=== PATIENT | female | born 1960 | race Caucasian/White ===

== ENCOUNTER → 2016-12-14 | Outpatient (CLI) | payer OTHER ==
[~2016-12-14] MED LIST: ACT15 PO; ADVIN25/60 INH; ALBU1AER9 INH; ASPCH81X PO; ASPEC81 PO; ATOR-24 PO; BISA-16 PO; BSP/10 PO; BUPR-79 PO; CANA1TAB3 PO; CHOL100010 PO; CYAN100020 PO; CZR25 PO; DEXL60CA4 PO; DTR/5 PO; EFF75 PO; ENOX1INJ13 SQ; FURO-85 PO; GABA800T PO; GLC/500 PO; HYDR1CAP85 PO; INSDGI SC; INSDGIPEN PO; INSDGIPEN SQ; LOSA1TAB PO; LPR50X PO; MCRK/10 PO; MECL1TAB42 PO; MIRT30TA2 PO; MIRT30TA3 PO; MULT-506 PO; NVLRB SC; ONDA8TAB6 PO; PIOG1TAB25 PO; POTA-327 PO; PREG100C PO; PYRI100T4 PO; RANI300C PO; ROPI1TAB29 PO; RQP/2 PO; RRNOVOLINR SQ; SOTA160T PO; SUCR1TAB29 PO; SUCR5SUS PO; SULF800T23 PO; TRAMTAB5 PO; VENL150T33 PO; VENL75CA PO; VNTHFA/IN INH; WARF5TAB90 PO
--- NOTE | 2016-12-20 08:06 | CODING QUERY NO DIAGNOSIS ---
TREATMENT RENDERED WITHOUT A DIAGNOSIS Dr. Larkin, To promote full compliance with coding requirements relating to patient care, physician participation is requested in all cases of health information coder uncertainty. Please assist us with providing a diagnosis/symptom for the test(s) below: A diagnosis/symptom was not documented on your Order. A valid diagnosis/symptom is required to bill all insurances. Please remember that we are unable to code a diagnosis of rule out, probable, possible, questionable, or suspected. Tests that require a diagnosis: * GRAM STAIN, DIRECT SMEAR DIAGNOSIS: * CULTURE, WOUND DIAGNOSIS: * ID, CULTURE ISOLATE DIAGNOSIS: DATE OF SERVICE: 12/14/16 Provider Signature: Date: Thank you Chapin [facility] Information Management Once completed, please kindly fax back to [phone] For questions please call [phone]
== END | disposition home or self-care (01) ==
LOC: C.LABSPEC 14:58
PROVIDERS: ATTEND Podiatrist
DX: L03.039 Cellulitis of unspecified toe (principal); Z98.890 Other specified postprocedural states

== ENCOUNTER 2016-12-16 11:10 | Emergency (ER) | payer OTHER ==
[~2016-12-16] VITALS: Ht 160 cm; Wt 148.6 kg
[~2016-12-16 11:10] MED LIST changes: -ACT15 PO; -ADVIN25/60 INH; -ASPCH81X PO; -BSP/10 PO; -BUPR-79 PO; -CHOL100010 PO; -INSDGI SC; -LOSA1TAB PO; -MCRK/10 PO; -MECL1TAB42 PO; -MIRT30TA2 PO; -MULT-506 PO; -NVLRB SC; -ONDA8TAB6 PO; -PIOG1TAB25 PO; -RQP/2 PO; -SUCR1TAB29 PO; -SULF800T23 PO; -TRAMTAB5 PO; -VENL150T33 PO; -VENL75CA PO; -VNTHFA/IN INH
[2016-12-16 11:13] VITALS: TEMP 37.4; Ht 160 cm; Wt 148.6 kg
[2016-12-16] MEDS ORDERED: ALBUT/IPRATROP 3MG/0.5MG NEB 3 ML VIAL INH STA (11:40)
--- NOTE | 2016-12-16 11:46 | EMERGENCY ROOM VISIT NOTE ---
History Report prepared by Grahamibmagaly: Lori Avalos Under the Supervision of: Dr. Von Vargas M.D. 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 When she takes a deep breath, she has sternal chest pain. She has burning pain that starts in her legs and radiates through her chest. She also complains of dizziness, shakiness, and abdominal pain. Her abdominal pain started about 40 minutes ago. She has never had similar symptoms in the past. Her states that she has been complaining of gas since she ate breakfast this morning. She has not had any recent falls. She does not have any close contacts with flu-like symptoms. Denies fever, cough, racing heart rate, increased leg swelling, or other complaints. She does not have a history of asthma. Past medical history includes bronchitis and COPD. She had her vitals taken at [facility] and was told she should come to the ED. 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 A total of 10 systems reviewed and were otherwise negative. Past Medical & Surgical Medical Problems: (1) Asthma, Unspecified (2) Atrial fibrillation (3) Bulging disc (4) Calculus Of Ureter (5) Diab Augustina Wo Compl, Type Ii Or Unspec Type, Not Uncntrld (6) Gastroparesis (7) Hypertension Nos (8) IBS (irritable bowel syndrome) (9) Mixed Hyperlipidemia (10) Paroxysmal atrial fibrillation (11) Reflux Esophagitis (12) TIA Surgical Problems: (1) Appendectomy (2) Carpal tunnel surgery (3) Cholecystectomy (4) H/O cardiac catheterization (5) Hysterectomy (6) S/P ablation of atrial fibrillation Old medical records were reviewed. Nurse's notes were reviewed and I agree with. Family History Diabetes mellitus FATHER FH: cancer FATHER Social History Smoking Status: Never Smoker Alcohol Use: none Drug Use: none Marital Status: Housing Status: lives with family Occupation Status: disabled Current/Historical Medications Scheduled Atorvastatin (Lipitor), 40 MG PO DAILY Dexlansoprazole (Dexilant), 60 CAP PO BID Furosemide (Lasix), 20 MG PO BID Gabapentin (Neurontin), 800 MG PO TID Insulin Human Regular (Novolin R), 40 UNITS SQ TID Metformin Hcl (Glucophage), 1,000 MG PO BID Metoprolol Tartrate (Metoprolol Tartrate), 50 MG PO BID Mirtazapine (Remeron), 30 MG PO QPM Pioglitazone Hcl (Pioglitazone Hcl), 15 MG PO DAILY Potassium Chloride (K-Tabs), 10 MEQ PO BID Ranitidine Hcl (Ranitidine Hcl), 300 MG PO HS Sotalol Hcl (Sotalol Hcl), 160 MG PO BID Venlafaxine Hcl (Effexor Xr), 1 CAP PO DAILY Warfarin Sodium (Coumadin), 10 MG PO 5XWK Warfarin Sodium (Coumadin), 7.5 MG PO 2XWK Allergies Coded Allergies: Penicillins (Verified Allergy, Mild, hives, 11/06/15) Amoxicillin (Unverified Allergy, Unknown, hives, 11/06/15) FROM DISPERMOX Dust (Verified Allergy, Unknown, HAY FEVER, 11/06/15) POLLEN (Verified Allergy, Unknown, HAY FEVER, 11/06/15) Quinolones (Unverified Adverse Reaction, Unknown, GI UPSET, 11/06/15) Sitagliptin (Verified Adverse Reaction, Unknown, abdominal pain, 11/06/15) Physical Exam Vital Signs Date Time Temp Pulse Resp B/P Pulse Ox O2 Delivery O2 Flow Rate FiO2 12/16/16 13:25 89 21 132/85 95 12/16/16 11:53 95 Room Air 12/16/16 11:13 37.4 65 22 136/83 96 Room Air Physical Exam General: Non-ill appearing, obese, middle aged female. Well developed well nourished in no acute distress, breathing comfortably on room air. Normal speech HEENT: Normal cephalic atraumatic. Pupils are equal round and reactive to light. Sclera are anicteric. Extraocular movements are intact. Oropharynx is pink with moist mucous membranes. No swelling of the mouth lips or tongue. Neck: Supple with a midline trachea. No meningeal signs or stiffness, no JVD or bruits. No Stridor. Chest: Clear to auscultation bilaterally. No wheezes or rhonchi. No increased work of breathing. Heart: regular rate and rhythm. Abdomen: Soft nontender, nondistended without rebound guarding or rigidity. Extremities: No cyanosis clubbing or edema. No calf tenderness or assymetry Spine/Back. Non tender to palpation. No CVA tenderness Skin: Good turgor without rashes. Neurologic exam: Cranial nerves two through 12 are intact. Motor and sensation are intact and symmetrical throughout. Medical Decision & Procedures ER Provider Diagnostic Interpretation: Radiology results as stated below per my review and radiologist interpretation: CHEST ONE VIEW PORTABLE CLINICAL HISTORY: CHEST PAIN dyspnea COMPARISON STUDY: 05/20/2014 FINDINGS: The bones soft tissues and hemidiaphragms are normal. The cardiomediastinal silhouette is normal. The lungs are clear. The pulmonary vasculature is normal. IMPRESSION: Negative chest. Electronically signed by: Iban Moore M.D. 12/16/2016 12:21 PM Dictated Date/Time: 12/16/2016 12:21 PM Laboratory Results 12/16/16 11:50 Red Blood Count 4.76, Mean Corpuscular Volume 86.6, Mean Corpuscular Hemoglobin 28.2, Mean Corpuscular Hemoglobin Concent 32.5, Mean Platelet Volume 9.6, Neutrophils (%) (Auto) 68.4, Lymphocytes (%) (Auto) 22.0, Monocytes (%) (Auto) 7.4, Eosinophils (%) (Auto) 1.7, Basophils (%) (Auto) 0.2, Neutrophils # (Auto) 7.22, Lymphocytes # (Auto) 2.32, Monocytes # (Auto) 0.78, Eosinophils # (Auto) 0.18, Basophils # (Auto) 0.02 12/16/16 11:50 Test 12/16/16 11:50 12/16/16 11:51 12/16/16 11:56 White Blood Count 10.55 K/uL (4.8-10.8) Red Blood Count 4.76 M/uL (4.2-5.4) Hemoglobin 13.4 g/dL (12.0-16.0) Hematocrit 41.2 % (37-47) Mean Corpuscular Volume 86.6 fL (80-100) Mean Corpuscular Hemoglobin 28.2 pg (25-34) Mean Corpuscular Hemoglobin Concent 32.5 g/dl (32-36) Platelet Count 361 K/uL (130-400) Mean Platelet Volume 9.6 fL (7.4-10.4) Neutrophils (%) (Auto) 68.4 % Lymphocytes (%) (Auto) 22.0 % Monocytes (%) (Auto) 7.4 % Eosinophils (%) (Auto) 1.7 % Basophils (%) (Auto) 0.2 % Neutrophils # (Auto) 7.22 K/uL (1.4-6.5) Lymphocytes # (Auto) 2.32 K/uL (1.2-3.4) Monocytes # (Auto) 0.78 K/uL (0.11-0.59) Eosinophils # (Auto) 0.18 K/uL (0-0.5) Basophils # (Auto) 0.02 K/uL (0-0.2) RDW Standard Deviation 43.4 fL (36.4-46.3) RDW Coefficient of Variation 13.7 % (11.5-14.5) Immature Granulocyte % (Auto) 0.3 % Immature Granulocyte # (Auto) 0.03 K/uL (0.00-0.02) Large Platelets 1+ Prothrombin Time 22.8 SECONDS (9.0-12.0) Prothromb Time International Ratio 2.1 (0.9-1.1) Activated Partial Thromboplast Time 34.2 SECONDS (21.0-31.0) Partial Thromboplastin Ratio 1.3 Anion Gap 7.0 mmol/L (3-11) Est Creatinine Clear Calc Drug Dose 101.3 ml/min Estimated GFR () 83.4 Estimated GFR (Non- 72.0 BUN/Creatinine Ratio 10.3 (10-20) Calcium Level 8.9 mg/dl (8.5-10.1) Total Bilirubin 0.3 mg/dl (0.2-1) Direct Bilirubin < 0.1 mg/dl (0-0.2) Aspartate Amino Transf (AST/SGOT) 27 U/L (15-37) Alanine Aminotransferase (ALT/SGPT) 38 U/L (12-78) Alkaline Phosphatase 122 U/L (45-117) Total Creatine Kinase 99 U/L (26-192) Creatine Kinase MB 0.7 ng/ml (0.5-3.6) Creatine Kinase MB Ratio 0.7 (0-3.0) Total Protein 7.5 gm/dl (6.4-8.2) Albumin 3.6 gm/dl (3.4-5.0) Lipase 165 U/L (73-393) Bedside Glucose 76 mg/dl (70-90) Bedside D-Dimer 53 ng/mlFEU (0-450) Bedside Troponin I 0.000 ng/ml (0-0.045) AM-Rwg-A-Type Natriuretic Peptide 138 pg/ml (0-900) Laboratory studies as stated above per my review. Medications Administered Medications (Trade) Dose Ordered Sig/Victorina Route Start Time Stop Time Status Last Admin Dose Admin Albuterol/ Ipratropium (Duoneb) 3 ml NOW STAT INH 12/16/16 11:40 12/16/16 11:42 DC 12/16/16 12:05 3 ML ECG Indication: SOB/dyspnea Rate (beats per minute): 63 Rhythm: normal sinus Findings: no acute ischemic change, no ectopy Comparison ECG Date: 05/20/14 Change: no significant change ED Course 1135: Past medical records reviewed. The patient was evaluated in room C10, and a complete history and physical examination were performed. 1140: Ordered DuoNeb 3 ml INH. 1314: Upon reevaluation, the patient is feeling much better after eating a meal. I discussed the results and treatment plan with the patient. She verbalized agreement of the treatment plan. The patient was discharged home. Medical Decision Differential includes but is not limited to CHF, COPD, arrhythmia, PE, acute coronary syndrome, anxiety, infection, electrolyte or metabolic abnormality. This patient comes in as described above. She was placed in room C 10. She felt short of breath and has some leg pain going up into her chest. She looks well on exam. she appears in no distress. She's not hypoxemic and has stable vital signs. EKG was obtained which does not show anything to suggest acute coronary syndrome or arrhythmia. Chest x-ray was clear and does not suggest congestive heart failure, pneumonia, or pneumothorax. Her cardiac enzymes are unremarkable. Her d-dimer is negative and in a low pretest probability study makes PE highly unlikely. She's had no acute electrolyte or metabolic abnormalities. She has nothing to suggest infection or sepsis. She was given a DuoNeb and observed in the ER. She also was found to have a low blood sugar in the 70s. This is actually low for her. She was given something to eat and felt better. This may be related to her blood sugar and she wants to go home. I think this is reasonable. She will return if: Worsening of symptoms, fever or chills, shortness of breath, any new problems or concerns. Impression Primary Impression: Hypoglycemia Additional Impression: Shortness of breath Scribe Attestation The scribe's documentation has been prepared under my direction and personally reviewed by me in its entirety. I confirm that the note above accurately reflects all work, treatment, procedures, and medical decision making performed by me. Departure Information Dispostion Home / Self-Care Referrals No Doctor, Assigned (PCP) Patient Instructions My [facility] Additional Instructions Rest. Drink plenty of fluids. Ensure that you do not miss any meals Checked your blood sugar frequently especially before bedtime Return if: Recurrence of symptoms, chest pain, problems with your blood sugar, shortness of breath or chills, any new problems or concerns Problem Qualifiers
[2016-12-16 12:00] LABS: HEMATOCRIT 41.2 % (37-47); MEAN CELL VOLUME 86.6 fL (80-100); MEAN CORPUSCULAR HEMOGLOBIN 28.2 pg (25-34); MEAN CORPUSCULAR HGB CONC 32.5 g/dl (32-36); MEAN PLATELET VOLUME 9.6 fL (7.4-10.4); PLATELET COUNT 361 K/uL (130-400); RED BLOOD COUNT 4.76 M/uL (4.2-5.4); WHITE BLOOD COUNT 10.55 K/uL (4.8-10.8)
[2016-12-16 12:17] LABS: ALT/SGPT 38 U/L (12-78); BLOOD UREA NITROGEN 9 mg/dl (7-18); BUN/CREATININE RATIO 10.3 (10-20); CALCIUM 8.9 mg/dl (8.5-10.1); CARBON DIOXIDE 34 mmol/L (21-32); CHLORIDE 101 mmol/L (98-107); GLUCOSE 74 mg/dl (70-99); POTASSIUM 3.7 mmol/L (3.5-5.1); SODIUM 142 mmol/L (136-145)
[2016-12-16 12:22] LABS: ALKALINE PHOSPHATASE 122 U/L (45-117); AST/SGOT 27 U/L (15-37); CKMB/CK RATIO 0.7 (0-3.0)
--- NOTE | 2016-12-16 12:22 | DIAGNOSTIC IMAGING REPORT ---
CHEST ONE VIEW PORTABLE CLINICAL HISTORY: CHEST PAIN dyspnea COMPARISON STUDY: 05/20/2014 FINDINGS: The bones soft tissues and hemidiaphragms are normal. The cardiomediastinal silhouette is normal. The lungs are clear. The pulmonary vasculature is normal. IMPRESSION: Negative chest. Electronically signed by: Iban Moore M.D. 12/16/2016 12:21 PM Dictated Date/Time: 12/16/2016 12:21 PM
[2016-12-16 12:25] LABS: INR 2.1 (0.9-1.1); PARTIAL THROMBOPLASTIN RATIO 1.3; PROTHROMBIN TIME (PATIENT) 22.8 SECONDS (9.0-12.0)
[2016-12-16 12:27] LABS: BASO % 0.2 %; BASO ABS # 0.02 K/uL (0-0.2); COMPLETE YES; EOS % 1.7 %; IG% 0.3 %; LARGE PLATELETS 1+; LYMPH ABS # 2.32 K/uL (1.2-3.4); MONO % 7.4 %; NEUT % 68.4 %
[2016-12-16 13:25] VITALS: BP 132/85; PULSE 89; O2SAT 95
[2016-12-16] MEDS ORDERED: MCRK/10 PO (13:31)
[2016-12-16] MEDS ORDERED: VENL75CA PO (13:31)
[2016-12-16] MEDS ORDERED: PIOG1TAB25 PO (13:31)
[2017-08-23] MEDS ORDERED: FURO-85 PO (09:30)
[2017-08-23] MEDS ORDERED: GLC/500 PO (09:30)
[2017-08-23] MEDS ORDERED: SOTA160T PO (09:30)
[2017-08-23] MEDS ORDERED: MIRT30TA2 PO (09:30)
[2017-08-23] MEDS ORDERED: BUPR-79 PO (09:30)
[2017-08-23] MEDS ORDERED: SUCR1TAB29 PO (09:30)
[2017-08-23] MEDS ORDERED: ASPCH81X PO (09:30)
[2017-08-23] MEDS ORDERED: TRAMTAB5 PO (09:30)
[2017-08-23] MEDS ORDERED: MULT-506 PO (09:30)
[2017-08-23] MEDS ORDERED: LOSA1TAB PO (09:30)
[2017-08-23] MEDS ORDERED: ADVIN25/60 INH (09:30)
[2017-08-23] MEDS ORDERED: NVLRB SC (09:30)
[2017-08-23] MEDS ORDERED: RQP/2 PO (09:30)
[2017-08-23] MEDS ORDERED: ACT15 PO (09:30)
[2017-08-23] MEDS ORDERED: MECL1TAB42 PO (09:30)
[2017-08-23] MEDS ORDERED: VNTHFA/IN INH (09:30)
[2017-08-23] MEDS ORDERED: ONDA8TAB6 PO (09:30)
[2017-08-23] MEDS ORDERED: CHOL100010 PO (09:30)
[2017-08-23] MEDS ORDERED: GABA800T PO (09:30)
[2017-08-23] MEDS ORDERED: INSDGI SC (09:30)
== END 2016-12-16 13:27 | disposition home or self-care (01) ==
LOC: C.EDB 11:11 → C.EDC 13:27
DX: E11.649 Type 2 diabetes mellitus with hypoglycemia without coma (principal); R06.02 Shortness of breath; I48.91 Unspecified atrial fibrillation; I10 Essential (primary) hypertension; E78.2 Mixed hyperlipidemia; K21.0 Gastro-esophageal reflux disease with esophagitis; K31.84 Gastroparesis; K58.9 Irritable bowel syndrome, unspecified; J45.909 Unspecified asthma, uncomplicated; Z86.73 Personal history of transient ischemic attack (TIA), and cerebral infarction without residual deficits; Z87.442 Personal history of urinary calculi; Z90.49 Acquired absence of other specified parts of digestive tract; Z90.710 Acquired absence of both cervix and uterus; Z98.890 Other specified postprocedural states; Z79.01 Long term (current) use of anticoagulants; Z79.4 Long term (current) use of insulin; Z79.84 Long term (current) use of oral hypoglycemic drugs; Z79.899 Other long term (current) drug therapy; Z88.0 Allergy status to penicillin; Z88.1 Allergy status to other antibiotic agents; Z88.8 Allergy status to other drugs, medicaments and biological substances; Z83.3 Family history of diabetes mellitus; Z80.9 Family history of malignant neoplasm, unspecified

== ENCOUNTER 2017-02-16 21:20 | Emergency (ER) | payer OTHER ==
[~2017-02-16] VITALS: Ht 165.1 cm; Wt 146.9 kg
[~2017-02-16 21:20] MED LIST changes: -ALBU1AER9 INH; -ASPEC81 PO; -BISA-16 PO; -CANA1TAB3 PO; -CYAN100020 PO; -CZR25 PO; -DTR/5 PO; -EFF75 PO; -ENOX1INJ13 SQ; -HYDR1CAP85 PO; -INSDGIPEN PO; -INSDGIPEN SQ; +MCRK/10 PO; +PIOG1TAB25 PO; -POTA-327 PO; -PREG100C PO; -PYRI100T4 PO; -ROPI1TAB29 PO; -SUCR5SUS PO; +VENL75CA PO
[2017-02-16 21:24] VITALS: Ht 165.1 cm; Wt 146.9 kg
[2017-02-16] MEDS ORDERED: ONDANSETRON INJ 2 MG/ML 2 ML VIAL IV STA (22:01)
[2017-02-16] MEDS ORDERED: KETOROLAC TROMETHAMINE 30 MG/ML VIAL IV STA (22:01)
[2017-02-16] MEDS ORDERED: SODIUM CHLORIDE 0.9% 1000ML 1,000 ML IV ONE (22:15)
[2017-02-16] MEDS ORDERED: BSP/10 PO (22:24)
[2017-02-16] MEDS ORDERED: VENL150T33 PO (22:24)
[2017-02-16 22:28] LABS: URINE APPEARANCE CLOUDY (CLEAR); URINE BILIRUBIN NEG (NEG); URINE EPITHELIAL CELL AUTO >30 /lpf (0-5); URINE NITRITE NEG (NEG); URINE PH 5.5 (4.5-7.5); UROBILINOGEN NEG (NEG); ZZUR CULT IF INDIC CLEAN CATCH YES
[2017-02-16 22:44] LABS: BASO % 0.3 %; BASO ABS # 0.02 K/uL (0-0.2); COMPLETE YES; EOS % 2.2 %; HEMATOCRIT 40.5 % (37-47); IG% 0.4 %; LYMPH % 31.9 %; LYMPH ABS # 2.52 K/uL (1.2-3.4); MEAN CELL VOLUME 85.4 fL (80-100); MEAN CORPUSCULAR HEMOGLOBIN 27.8 pg (25-34); MEAN CORPUSCULAR HGB CONC 32.6 g/dl (32-36); MEAN PLATELET VOLUME 9.6 fL (7.4-10.4); MONO % 6.8 %; NEUT % 58.4 %; PLATELET COUNT 267 K/uL (130-400); RED BLOOD COUNT 4.74 M/uL (4.2-5.4)
--- NOTE | 2017-02-16 22:50 | DIAGNOSTIC IMAGING REPORT ---
ABDOMEN AND PELVIS CT WITHOUT CONTRAST CT DOSE: 2109.29 mGy.cm HISTORY: Hematuria. Flank pain TECHNIQUE: Multiaxial CT images of the abdomen and pelvis were performed without the use of intravenous and oral contrast according to the standard department stone protocol. COMPARISON STUDY: Abdomen and pelvis CT 02/22/2010. FINDINGS: The lung bases are clear. No pneumoperitoneum. No pneumatosis. Cholecystectomy. Appendectomy. Hepatic steatosis. The unenhanced spleen, adrenal glands, and pancreas are unremarkable. There is a diverticulum at the second portion of the duodenum. A 5 mm stone within the right kidney. No left renal stones. A 5.6 cm hypodense lesion within the left kidney. This likely represents a cyst but is incompletely characterized on this noncontrast study. No ureteral stones. No hydronephrosis. No retroperitoneal lymphadenopathy. The bladder is not well-distended but appears unremarkable. Small fat-containing umbilical hernia. Hysterectomy. Suboptimal evaluation for bowel pathology due to the lack of intravenous and oral contrast. However, there is no definite bowel wall thickening or obstruction. IMPRESSION: 1. Right-sided nephrolithiasis. No hydronephrosis. 2. No definite bowel wall thickening or obstruction. 3. Additional findings as described above. Electronically signed by: Brandin Montejo M.D. 02/16/2017 10:48 PM Dictated Date/Time: 02/16/2017 10:42 PM
[2017-02-16 23:00] LABS: CALCIUM 8.6 mg/dl (8.5-10.1)
[2017-02-16 23:01] LABS: BUN/CREATININE RATIO 9.9 (10-20); POTASSIUM 3.7 mmol/L (3.5-5.1)
[2017-02-16 23:04] LABS: ALB/GLOB RATIO 0.9 (0.9-2)
[2017-02-16 23:06] LABS: MANUAL MICROSCOPIC REQUIRED? NO; REVIEW REQ? YES; URINE COLOR RED
--- NOTE | 2017-02-16 23:48 | EMERGENCY ROOM VISIT NOTE ---
ED Visit Note First contact with patient: 21:52 Patient seen by me with the physician food and beverage assistant. I agree with his workup. Patient will be treated for hemorrhagic cystitis. We've discussed evaluation with the patient patient's family at bedside Problem List Medical Problems: (1) Asthma, Unspecified Status: Chronic (2) Atrial fibrillation Status: Chronic (3) Bulging disc Status: Chronic (4) Calculus Of Ureter Status: Resolved (5) Diab Augustina Wo Compl, Type Ii Or Unspec Type, Not Uncntrld Status: Chronic (6) Gastroparesis Status: Chronic (7) Hypertension Nos Status: Chronic (8) IBS (irritable bowel syndrome) Status: Chronic (9) Mixed Hyperlipidemia Status: Chronic (10) Paroxysmal atrial fibrillation Status: Resolved (11) Reflux Esophagitis Status: Chronic (12) TIA Status: Chronic Surgical Problems: (1) Appendectomy Status: Resolved (2) Carpal tunnel surgery Status: Resolved (3) Cholecystectomy Status: Resolved (4) H/O cardiac catheterization Permanent Comment: Reported Oct 2011, normal coronary vasculature. Dr. Phillip Payne. Status: Resolved (5) Hysterectomy Status: Resolved (6) S/P ablation of atrial fibrillation Status: Resolved Current/Historical Medications Scheduled Atorvastatin (Lipitor), 40 MG PO DAILY Buspirone HCl (Buspirone HCl), 5 MG PO QAM Dexlansoprazole (Dexilant), 60 CAP PO BID Furosemide (Lasix), 20 MG PO BID Gabapentin (Neurontin), 800 MG PO TID Insulin Human Regular (Novolin R), 40 UNITS SQ TID Metformin Hcl (Glucophage), 1,000 MG PO BID Metoprolol Tartrate (Metoprolol Tartrate), 50 MG PO BID Mirtazapine (Remeron), 30 MG PO QPM Pioglitazone Hcl (Pioglitazone Hcl), 15 MG PO DAILY Potassium Chloride (K-Tabs), 10 MEQ PO BID Ranitidine Hcl (Ranitidine Hcl), 300 MG PO HS Sotalol Hcl (Sotalol Hcl), 160 MG PO BID Venlafaxine Hcl (Effexor Xr), 75 CAP PO QPM Venlafaxine Hcl (Venlafaxine Hcl Er), 150 MG PO QAM Warfarin Sodium (Coumadin), 15 MG PO MWF Warfarin Sodium (Coumadin), 10 MG PO DIRECTED Allergies Coded Allergies: Penicillins (Verified Allergy, Mild, hives, 02/16/17) Amoxicillin (Unverified Allergy, Unknown, hives, 02/16/17) FROM DISPERMOX Dust (Verified Allergy, Unknown, HAY FEVER, 02/16/17) POLLEN (Verified Allergy, Unknown, HAY FEVER, 02/16/17) Quinolones (Unverified Adverse Reaction, Unknown, GI UPSET, 02/16/17) Sitagliptin (Verified Adverse Reaction, Unknown, abdominal pain, 02/16/17) Vital Signs Date Time Temp Pulse Resp B/P (MAP) Pulse Ox O2 Delivery O2 Flow Rate FiO2 02/16/17 21:24 36.8 94 18 162/94 94 Room Air Laboratory Results 02/16/17 22:15 Red Blood Count 4.74, Mean Corpuscular Volume 85.4, Mean Corpuscular Hemoglobin 27.8, Mean Corpuscular Hemoglobin Concent 32.6, Mean Platelet Volume 9.6, Neutrophils (%) (Auto) 58.4, Lymphocytes (%) (Auto) 31.9, Monocytes (%) (Auto) 6.8, Eosinophils (%) (Auto) 2.2, Basophils (%) (Auto) 0.3, Neutrophils # (Auto) 4.62, Lymphocytes # (Auto) 2.52, Monocytes # (Auto) 0.54, Eosinophils # (Auto) 0.17, Basophils # (Auto) 0.02 02/16/17 22:15 Test 02/16/17 21:50 02/16/17 22:15 Urine Color RED Urine Appearance CLOUDY (CLEAR) Urine pH 5.5 (4.5-7.5) Urine Specific [place] 1.020 (1.000-1.030) Urine Protein 2+ (NEG) Urine Glucose (UA) NEG (NEG) Urine Ketones TRACE (NEG) Urine Occult Blood 3+ (NEG) Urine Nitrite NEG (NEG) Urine Bilirubin NEG (NEG) Urine Urobilinogen NEG (NEG) Urine Leukocyte Esterase TRACE (NEG) Urine WBC (Auto) 10-30 /hpf (0-5) Urine RBC (Auto) >30 /hpf (0-4) Urine Hyaline Casts (Auto) 0 /lpf (0-5) Urine Epithelial Cells (Auto) >30 /lpf (0-5) Urine Bacteria (Auto) 1+ (NEG) Urine Pathogenic Casts /lpf (0) White Blood Count 7.90 K/uL (4.8-10.8) Red Blood Count 4.74 M/uL (4.2-5.4) Hemoglobin 13.2 g/dL (12.0-16.0) Hematocrit 40.5 % (37-47) Mean Corpuscular Volume 85.4 fL (80-100) Mean Corpuscular Hemoglobin 27.8 pg (25-34) Mean Corpuscular Hemoglobin Concent 32.6 g/dl (32-36) Platelet Count 267 K/uL (130-400) Mean Platelet Volume 9.6 fL (7.4-10.4) Neutrophils (%) (Auto) 58.4 % Lymphocytes (%) (Auto) 31.9 % Monocytes (%) (Auto) 6.8 % Eosinophils (%) (Auto) 2.2 % Basophils (%) (Auto) 0.3 % Neutrophils # (Auto) 4.62 K/uL (1.4-6.5) Lymphocytes # (Auto) 2.52 K/uL (1.2-3.4) Monocytes # (Auto) 0.54 K/uL (0.11-0.59) Eosinophils # (Auto) 0.17 K/uL (0-0.5) Basophils # (Auto) 0.02 K/uL (0-0.2) RDW Standard Deviation 43.2 fL (36.4-46.3) RDW Coefficient of Variation 13.8 % (11.5-14.5) Immature Granulocyte % (Auto) 0.4 % Immature Granulocyte # (Auto) 0.03 K/uL (0.00-0.02) Anion Gap 6.0 mmol/L (3-11) Est Creatinine Clear Calc Drug Dose 92.2 ml/min Estimated GFR () 72.9 Estimated GFR (Non- 62.9 BUN/Creatinine Ratio 9.9 (10-20) Calcium Level 8.6 mg/dl (8.5-10.1) Total Bilirubin 0.3 mg/dl (0.2-1) Aspartate Amino Transf (AST/SGOT) 37 U/L (15-37) Alanine Aminotransferase (ALT/SGPT) 56 U/L (12-78) Alkaline Phosphatase 118 U/L (45-117) Total Protein 7.0 gm/dl (6.4-8.2) Albumin 3.3 gm/dl (3.4-5.0) Globulin 3.7 gm/dl (2.5-4.0) Albumin/Globulin Ratio 0.9 (0.9-2) Lipase 177 U/L (73-393) Medications Administered Medications (Trade) Dose Ordered Sig/Victorina Route Start Time Stop Time Status Last Admin Dose Admin Sodium Chloride 1,000 ml @ 999 mls/hr Q1H1M ONCE IV 02/16/17 22:15 02/16/17 23:15 DC 02/16/17 22:15 999 MLS/HR Ketorolac Tromethamine (Toradol Inj) 30 mg NOW STAT IV 02/16/17 22:01 02/16/17 22:05 DC 02/16/17 22:46 30 MG Ondansetron HCl (Zofran Inj) 4 mg NOW STAT IV 02/16/17 22:01 02/16/17 22:05 DC 02/16/17 22:45 4 MG Departure Information Referrals Chilo Goyal M.D. (PCP) Patient Instructions My [facility]
[2017-02-16] MEDS ORDERED: SULF800T23 PO (23:58)
[2017-02-17] MEDS ORDERED: SEPTRA DS HOME PACK 1 EA VIAL PO ONE
[2017-02-17 00:03] VITALS: BP 186/102; PULSE 75; TEMP 36.8; O2SAT 95
--- NOTE | 2017-02-17 01:04 | EMERGENCY ROOM VISIT NOTE ---
History First contact with patient: 21:52 Chief Complaint: URINARY SYMPTOMS Stated Complaint: BLOOD IN URINE AND BACK PRESSURE History of Present Illness The patient is a 57 year old female who presents to the Emergency Room with complaints of back pain and blood in her urine. The patient states that she noticed her symptoms earlier today. She has not had fever or chills. The patient does have some pain with urination and frequency. She is diabetic and states that her sugars have been slightly high, running around 215 today. The patient has not had nausea or vomiting. No chest pain, chest tightness, shortness of breath, or pain in the front of her abdomen. She does report a history of kidney stone in the past. She states that her pain is a dull 6/10 and radiates to her groin. She has not taken anything [id number] for her discomfort. Review of Systems More than 10 systems were reviewed and otherwise negative with the exception of history of present illness. Past Medical/Surgical History Medical Problems: (1) Asthma, Unspecified (2) Atrial fibrillation (3) Bulging disc (4) Calculus Of Ureter (5) Diab Augustina Wo Compl, Type Ii Or Unspec Type, Not Uncntrld (6) Gastroparesis (7) Hypertension Nos (8) IBS (irritable bowel syndrome) (9) Mixed Hyperlipidemia (10) Paroxysmal atrial fibrillation (11) Reflux Esophagitis (12) TIA Surgical Problems: (1) Appendectomy (2) Carpal tunnel surgery (3) Cholecystectomy (4) H/O cardiac catheterization (5) Hysterectomy (6) S/P ablation of atrial fibrillation Family History Diabetes mellitus FATHER FH: cancer FATHER Social History Smoking Status: Never Smoker Alcohol Use: none Drug Use: none Marital Status: Housing Status: lives with family Occupation Status: disabled Current/Historical Medications Scheduled Atorvastatin (Lipitor), 40 MG PO DAILY Buspirone HCl (Buspirone HCl), 5 MG PO QAM Dexlansoprazole (Dexilant), 60 CAP PO BID Furosemide (Lasix), 20 MG PO BID Gabapentin (Neurontin), 800 MG PO TID Insulin Human Regular (Novolin R), 40 UNITS SQ TID Metformin Hcl (Glucophage), 1,000 MG PO BID Metoprolol Tartrate (Metoprolol Tartrate), 50 MG PO BID Mirtazapine (Remeron), 30 MG PO QPM Pioglitazone Hcl (Pioglitazone Hcl), 15 MG PO DAILY Potassium Chloride (K-Tabs), 10 MEQ PO BID Ranitidine Hcl (Ranitidine Hcl), 300 MG PO HS Sotalol Hcl (Sotalol Hcl), 160 MG PO BID Sulfa/Trimethoprim (Bactrim Ds 800MG/160MG), 1 TAB PO BID Venlafaxine Hcl (Effexor Xr), 75 CAP PO QPM Venlafaxine Hcl (Venlafaxine Hcl Er), 150 MG PO QAM Warfarin Sodium (Coumadin), 15 MG PO MWF Warfarin Sodium (Coumadin), 10 MG PO DIRECTED Allergies Coded Allergies: Penicillins (Verified Allergy, Mild, hives, 02/16/17) Amoxicillin (Unverified Allergy, Unknown, hives, 02/16/17) FROM DISPERMOX Dust (Verified Allergy, Unknown, HAY FEVER, 02/16/17) POLLEN (Verified Allergy, Unknown, HAY FEVER, 02/16/17) Quinolones (Unverified Adverse Reaction, Unknown, GI UPSET, 02/16/17) Sitagliptin (Verified Adverse Reaction, Unknown, abdominal pain, 02/16/17) Physical Exam Vital Signs Date Time Temp Pulse Resp B/P (MAP) Pulse Ox O2 Delivery O2 Flow Rate FiO2 02/17/17 00:03 36.8 75 18 186/102 95 02/16/17 23:56 75 186/102 95 Room Air 02/16/17 21:24 36.8 94 18 162/94 94 Room Air Pain Rating (0-10): 0 Physical Exam VITALS: Vitals are noted on the nurse's note and reviewed by myself. Vital signs stable. GENERAL: Well-developed, well-nourished, white female, who is in no acute distress and resting comfortably. Patient is cooperative with the examination. HEAD: Normocephalic atraumatic. HEART: Regular rate and rhythm without murmurs gallops or rubs. LUNGS: Clear to auscultation bilaterally without wheezes, rales or rhonchi. No retractions or accessory muscle use. ABDOMEN: Positive normal bowel sounds x 4. Soft, nontender, without masses or organomegaly. No guarding or rebound tenderness. No CVA tenderness. MUSCULOSKELETAL: No muscle atrophy, erythema, or edema noted. Full range of motion without joint tenderness in all extremities. Medical Decision & Procedures ER Provider Diagnostic Interpretation: ABDOMEN AND PELVIS CT WITHOUT CONTRAST CT DOSE: 2109.29 mGy.cm HISTORY: Hematuria. Flank pain TECHNIQUE: Multiaxial CT images of the abdomen and pelvis were performed without the use of intravenous and oral contrast according to the standard department stone protocol. COMPARISON STUDY: Abdomen and pelvis CT 02/22/2010. FINDINGS: The lung bases are clear. No pneumoperitoneum. No pneumatosis. Cholecystectomy. Appendectomy. Hepatic steatosis. The unenhanced spleen, adrenal glands, and pancreas are unremarkable. There is a diverticulum at the second portion of the duodenum. A 5 mm stone within the right kidney. No left renal stones. A 5.6 cm hypodense lesion within the left kidney. This likely represents a cyst but is incompletely characterized on this noncontrast study. No ureteral stones. No hydronephrosis. No retroperitoneal lymphadenopathy. The bladder is not well-distended but appears unremarkable. Small fat-containing umbilical hernia. Hysterectomy. Suboptimal evaluation for bowel pathology due to the lack of intravenous and oral contrast. However, there is no definite bowel wall thickening or obstruction. IMPRESSION: 1. Right-sided nephrolithiasis. No hydronephrosis. 2. No definite bowel wall thickening or obstruction. 3. Additional findings as described above. Laboratory Results 02/16/17 22:15 Red Blood Count 4.74, Mean Corpuscular Volume 85.4, Mean Corpuscular Hemoglobin 27.8, Mean Corpuscular Hemoglobin Concent 32.6, Mean Platelet Volume 9.6, Neutrophils (%) (Auto) 58.4, Lymphocytes (%) (Auto) 31.9, Monocytes (%) (Auto) 6.8, Eosinophils (%) (Auto) 2.2, Basophils (%) (Auto) 0.3, Neutrophils # (Auto) 4.62, Lymphocytes # (Auto) 2.52, Monocytes # (Auto) 0.54, Eosinophils # (Auto) 0.17, Basophils # (Auto) 0.02 02/16/17 22:15 Test 02/16/17 21:50 02/16/17 22:15 Urine Color RED Urine Appearance CLOUDY (CLEAR) Urine pH 5.5 (4.5-7.5) Urine Specific [place] 1.020 (1.000-1.030) Urine Protein 2+ (NEG) Urine Glucose (UA) NEG (NEG) Urine Ketones TRACE (NEG) Urine Occult Blood 3+ (NEG) Urine Nitrite NEG (NEG) Urine Bilirubin NEG (NEG) Urine Urobilinogen NEG (NEG) Urine Leukocyte Esterase TRACE (NEG) Urine WBC (Auto) 10-30 /hpf (0-5) Urine RBC (Auto) >30 /hpf (0-4) Urine Hyaline Casts (Auto) 0 /lpf (0-5) Urine Epithelial Cells (Auto) >30 /lpf (0-5) Urine Bacteria (Auto) 1+ (NEG) Urine Pathogenic Casts /lpf (0) White Blood Count 7.90 K/uL (4.8-10.8) Red Blood Count 4.74 M/uL (4.2-5.4) Hemoglobin 13.2 g/dL (12.0-16.0) Hematocrit 40.5 % (37-47) Mean Corpuscular Volume 85.4 fL (80-100) Mean Corpuscular Hemoglobin 27.8 pg (25-34) Mean Corpuscular Hemoglobin Concent 32.6 g/dl (32-36) Platelet Count 267 K/uL (130-400) Mean Platelet Volume 9.6 fL (7.4-10.4) Neutrophils (%) (Auto) 58.4 % Lymphocytes (%) (Auto) 31.9 % Monocytes (%) (Auto) 6.8 % Eosinophils (%) (Auto) 2.2 % Basophils (%) (Auto) 0.3 % Neutrophils # (Auto) 4.62 K/uL (1.4-6.5) Lymphocytes # (Auto) 2.52 K/uL (1.2-3.4) Monocytes # (Auto) 0.54 K/uL (0.11-0.59) Eosinophils # (Auto) 0.17 K/uL (0-0.5) Basophils # (Auto) 0.02 K/uL (0-0.2) RDW Standard Deviation 43.2 fL (36.4-46.3) RDW Coefficient of Variation 13.8 % (11.5-14.5) Immature Granulocyte % (Auto) 0.4 % Immature Granulocyte # (Auto) 0.03 K/uL (0.00-0.02) Anion Gap 6.0 mmol/L (3-11) Est Creatinine Clear Calc Drug Dose 92.2 ml/min Estimated GFR () 72.9 Estimated GFR (Non- 62.9 BUN/Creatinine Ratio 9.9 (10-20) Calcium Level 8.6 mg/dl (8.5-10.1) Total Bilirubin 0.3 mg/dl (0.2-1) Aspartate Amino Transf (AST/SGOT) 37 U/L (15-37) Alanine Aminotransferase (ALT/SGPT) 56 U/L (12-78) Alkaline Phosphatase 118 U/L (45-117) Total Protein 7.0 gm/dl (6.4-8.2) Albumin 3.3 gm/dl (3.4-5.0) Globulin 3.7 gm/dl (2.5-4.0) Albumin/Globulin Ratio 0.9 (0.9-2) Lipase 177 U/L (73-393) Medications Administered Medications (Trade) Dose Ordered Sig/Victorina Route Start Time Stop Time Status Last Admin Dose Admin Sodium Chloride 1,000 ml @ 999 mls/hr Q1H1M ONCE IV 02/16/17 22:15 02/16/17 23:15 DC 02/16/17 22:15 999 MLS/HR Ketorolac Tromethamine (Toradol Inj) 30 mg NOW STAT IV 02/16/17 22:01 02/16/17 22:05 DC 02/16/17 22:46 30 MG Ondansetron HCl (Zofran Inj) 4 mg NOW STAT IV 02/16/17 22:01 02/16/17 22:05 DC 02/16/17 22:45 4 MG Trimethoprim/ Sulfamethoxazole (Sulfameth/ Trimeth Ds 800/ 160MG Home Pack) 1 homepack UD ONCE PO 02/17/17 00:00 02/17/17 00:01 DC 02/16/17 23:56 1 HOMEPACK ED Course Physical exam and history were performed. Nursing notes and EMR were reviewed. Patient appears to have hematuria with dysuria for the past one day. The patient does not appear toxic on examination. IV access was established and labs were obtained. The patient was hydrated as above. Because of her hematuria and past history of kidney stone I did elect from CT scan. The patient's blood work is as above and was reviewed. She does not have significant elevated white blood cell count, anemia, bandemia, or significant electrolyte imbalance. Lipase and transaminases are nondiagnostic. Her urine is with blood and signs of infection. CT scan does not show evidence of ureteral calculi or acute surgical abdominal process. Overall the patient appears well for discharge home. She is allergic to several antibiotics, and will be started on Bactrim. The patient will need close follow-up and she is a diabetic and is on coumadin. She was otherwise invited back to the emergency department with any new, worsening, or concerning symptoms. The chart was completed utilizing [employer] Speech Voice Recognition Software. Grammatical errors, random word insertions, pronoun errors, and incomplete sentences are an occasional consequence of this system due to software limitations, ambient noise, and hardware issues. Any formal questions or concerns about the content, text, or information contained within the body of this dictation should be directly addressed to the provider for clarification. . Medical Decision Differential diagnosis: Etiologies such as renal colic, appendicitis, diverticulitis, mesenteric ischemia, aortic pathology, infections, inflammatory bowel disease, PUD, biliary pathology, UTI, as well as others were entertained. Impression Primary Impression: Urinary tract infection Departure Information Dispostion Home / Self-Care Condition GOOD Prescriptions Sulfa/Trimethoprim (Bactrim Ds 800MG/160MG) Tab 1 TAB PO BID for 7 Days, #14 TAB Prov: Onur Prado PA-C 02/16/17 Referrals Chilo Goyal M.D. (PCP) Forms HOME CARE DOCUMENTATION FORM, IMPORTANT VISIT INFORMATION Patient Instructions My [facility] Additional Instructions You were seen and evaluated today on an emergency basis only. This is not a substitute for, or an effort to provide, complete comprehensive medical care. It is not possible to recognize and treat all injuries or illnesses in a single emergency department visit. For this reason it is recommended that you followup with your primary care physician on Monday for recheck of your condition. Trimethoprim-Sulfamethoxazole(Bactrim DS): Take one pill twice daily for 7 days for your skin infection. All antibiotics can cause diarrhea. If this occurs and you feel worse or it does not resolve in 1-2 days follow up with your doctor or return to the Emergency Department as this could be signs of serious underlying problems. Any medication can cause an allergic reaction, stop the pills immediately and return to the ER for rash, hives, breathing difficulties, or swelling. Call your Coumadin clinic in the morning to let them know you are on Bactrim You are welcome to return to the emergency department anytime with new, worsening, or concerning symptoms.
[2017-08-23] MEDS ORDERED: TRAMTAB5 PO (09:30)
[2017-08-23] MEDS ORDERED: ONDA8TAB6 PO (09:30)
[2017-08-23] MEDS ORDERED: ADVIN25/60 INH (09:30)
[2017-08-23] MEDS ORDERED: BUPR-79 PO (09:30)
[2017-08-23] MEDS ORDERED: GLC/500 PO (09:30)
[2017-08-23] MEDS ORDERED: MULT-506 PO (09:30)
[2017-08-23] MEDS ORDERED: CHOL100010 PO (09:30)
[2017-08-23] MEDS ORDERED: SOTA160T PO (09:30)
[2017-08-23] MEDS ORDERED: ACT15 PO (09:30)
[2017-08-23] MEDS ORDERED: MIRT30TA2 PO (09:30)
[2017-08-23] MEDS ORDERED: MECL1TAB42 PO (09:30)
[2017-08-23] MEDS ORDERED: LOSA1TAB PO (09:30)
[2017-08-23] MEDS ORDERED: RQP/2 PO (09:30)
[2017-08-23] MEDS ORDERED: GABA800T PO (09:30)
[2017-08-23] MEDS ORDERED: FURO-85 PO (09:30)
[2017-08-23] MEDS ORDERED: ASPCH81X PO (09:30)
[2017-08-23] MEDS ORDERED: VNTHFA/IN INH (09:30)
[2017-08-23] MEDS ORDERED: SUCR1TAB29 PO (09:30)
[2017-08-23] MEDS ORDERED: NVLRB SC (09:30)
[2017-08-23] MEDS ORDERED: INSDGI SC (09:30)
== END 2017-02-17 00:03 | disposition home or self-care (01) ==
LOC: C.EDB 21:22 → C.EDA 02-17 00:03
DX: N39.0 Urinary tract infection, site not specified (principal); E11.65 Type 2 diabetes mellitus with hyperglycemia; E11.43 Type 2 diabetes mellitus with diabetic autonomic (poly)neuropathy; Z87.442 Personal history of urinary calculi; J45.909 Unspecified asthma, uncomplicated; I10 Essential (primary) hypertension; K58.9 Irritable bowel syndrome, unspecified; E78.2 Mixed hyperlipidemia; I48.0 Paroxysmal atrial fibrillation; K21.9 Gastro-esophageal reflux disease without esophagitis; Z86.73 Personal history of transient ischemic attack (TIA), and cerebral infarction without residual deficits; Z90.49 Acquired absence of other specified parts of digestive tract; Z90.710 Acquired absence of both cervix and uterus; Z83.3 Family history of diabetes mellitus; Z80.9 Family history of malignant neoplasm, unspecified; Z79.01 Long term (current) use of anticoagulants; Z79.899 Other long term (current) drug therapy

== ENCOUNTER 2017-09-10 12:35 | Emergency (ER) | payer OTHER ==
[~2017-09-10] VITALS: Ht 165.1 cm; Wt 134.2 kg
[~2017-09-10 12:35] MED LIST changes: +ACT15 PO; +ASPCH81X PO; +BUPR-79 PO; -DEXL60CA4 PO; -FURO-85 PO; -GABA800T PO; +INSDGI SC; -LPR50X PO; -MCRK/10 PO; +MIRT30TA2 PO; -MIRT30TA3 PO; +NVLRB SC; -PIOG1TAB25 PO; -RANI300C PO; -RRNOVOLINR SQ; -SOTA160T PO; +VENL150T33 PO; -WARF5TAB90 PO
[2017-09-10 12:40] VITALS: TEMP 36.8; Ht 165.1 cm; Wt 134.2 kg
[2017-09-10 13:33] LABS: BASO % 0.3 %; BASO ABS # 0.02 K/uL (0-0.2); COMPLETE YES; EOS % 1.5 %; HEMATOCRIT 43.9 % (37-47); IG% 0.4 %; LYMPH % 24.7 %; LYMPH ABS # 1.76 K/uL (1.2-3.4); MEAN CELL VOLUME 84.7 fL (80-100); MEAN CORPUSCULAR HEMOGLOBIN 28.6 pg (25-34); MEAN CORPUSCULAR HGB CONC 33.7 g/dl (32-36); MEAN PLATELET VOLUME 10.5 fL (7.4-10.4); MONO % 7.2 %; NEUT % 65.9 %; PLATELET COUNT 231 K/uL (130-400); RED BLOOD COUNT 5.18 M/uL (4.2-5.4); WHITE BLOOD COUNT 7.13 K/uL (4.8-10.8)
--- NOTE | 2017-09-10 13:34 | EMERGENCY ROOM VISIT NOTE ---
History Report prepared by Kalpesh: Toro Mcpherson Under the Supervision of: Dr. Surjit Manzanares M.D. 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 She notes that she went to scientologist this morning when the pain suddenly began and radiated to her left arm. She describes the discomfort as "sucking in cold air that makes you want to cough." She currently rates her pain a 4/10 in severity. She notes increased tiredness. She denies any LA. She has a history of atrial fibrillation and ablation. She notes the pain felt like previous atrial fibrillation. She notes that her left arm went numb. She describes. She notes that she takes her medications regularly. She notes that she has not been sick recently, though she has had sick contacts. She notes that she has been sleeping well. She notes that she drinks three liters of regular Dr. Pepper a day. She notes that she is addicted to the soda. She denies drinking sugar free soda. She notes that some days she does not drink water at all. She has a history of diabetes. She notes that she does not regularly check her sugar. She denies any abdominal pain. 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 She notes increased tiredness. Review of Systems All systems have been listed, reviewed, and are negative other than those previously mentioned. Please see Additional Medical History Sheet. Past Medical & Surgical Medical Problems: (1) Asthma, Unspecified (2) Atrial fibrillation (3) Bulging disc (4) Calculus Of Ureter (5) Diab Augustina Wo Compl, Type Ii Or Unspec Type, Not Uncntrld (6) Gastroparesis (7) Hypertension Nos (8) IBS (irritable bowel syndrome) (9) Mixed Hyperlipidemia (10) Paroxysmal atrial fibrillation (11) Reflux Esophagitis (12) TIA Surgical Problems: (1) Appendectomy (2) Carpal tunnel surgery (3) Cholecystectomy (4) H/O cardiac catheterization (5) Hysterectomy (6) S/P ablation of atrial fibrillation Family History Diabetes mellitus FATHER FH: cancer FATHER Social History Smoking Status: Never Smoker Alcohol Use: none Drug Use: none Marital Status: Housing Status: lives with family Occupation Status: disabled Current/Historical Medications Scheduled Aspirin (Aspirin Chewable), 81 MG PO QAM Atorvastatin (Lipitor), 40 MG PO QPM Bupropion (Wellbutrin Sr), 150 MG PO QAM Buspirone HCl (Buspirone HCl), 10 MG PO QAM Cholecalciferol (Vitamin D), 1 TAB PO QAM Dexlansoprazole (Dexilant), 60 CAP PO BID Furosemide (Lasix), 20 MG PO QAM Gabapentin (Neurontin), 800 MG PO TID Insulin Glargine (Lantus), 46 UNIT SC BID Insulin Human Regular (Novolin R), 45 UNITS SC AC Losartan Potassium (Cozaar), 25 MG PO QPM Metformin Hcl (Glucophage), 2 TAB PO BID Metoprolol Tartrate (Metoprolol Tartrate), 50 MG PO BID Mirtazapine Soltab (Remeron Soltab), 30 MG PO HS Multivitamin (Multivitamin), 1 TAB PO QAM Nitrofurantoin Monohyd Macro (Macrobid), 100 MG PO BID Pioglitazone (Actos), 1 TAB PO QAM Potassium Chloride (K-Tabs), 10 MEQ PO BID Ranitidine Hcl (Ranitidine Hcl), 300 MG PO HS Ropinirole Hydrochloride (Requip), 2 MG PO TID Sotalol Hcl (Sotalol Hcl), 1 TAB PO BID Sucralfate (Carafate), 1 GM PO QID Venlafaxine Hcl (Effexor Xr), 75 CAP PO QPM Venlafaxine Hcl (Venlafaxine Hcl Er), 150 MG PO QAM Warfarin Sodium (Coumadin), 15 MG PO 2XWK Warfarin Sodium (Coumadin), 10 MG PO 5XWK Scheduled PRN Albuterol Hfa (Ventolin Hfa), 2-4 PUFFS INH Q6H PRN for Shortness of Breath Fluticasone Prop/Salmeterol (Advair Diskus 250/50 60 Dose), 1 PUFF INH BID PRN for Shortness of Breath Meclizine Hcl (Meclizine Hcl), 1 TAB PO TID PRN for VERTIGO Ondansetron Hcl (Zofran), 8 MG PO Q8H PRN for Nausea Tramadol/Acetaminophen (Ultracet), 1 TAB PO QID PRN for Pain Allergies Coded Allergies: Penicillins (Verified Allergy, Mild, hives, 08/23/17) Amoxicillin (Unverified Allergy, Unknown, hives, 08/23/17) FROM DISPERMOX Dust (Verified Allergy, Unknown, HAY FEVER, 08/23/17) POLLEN (Verified Allergy, Unknown, HAY FEVER, 08/23/17) Quinolones (Unverified Adverse Reaction, Unknown, GI UPSET, 08/23/17) Sitagliptin (Verified Adverse Reaction, Unknown, abdominal pain, 08/23/17) Physical Exam Vital Signs Date Time Temp Pulse Resp B/P (MAP) Pulse Ox O2 Delivery O2 Flow Rate FiO2 09/10/17 15:30 62 20 134/72 96 Room Air 09/10/17 14:31 78 20 155/87 93 Room Air 09/10/17 13:42 76 16 144/82 93 Room Air 09/10/17 13:09 66 09/10/17 13:07 98 Room Air 09/10/17 12:40 36.8 92 20 140/85 92 Room Air Physical Exam GENERAL: Patient awake, alert, oriented x 3. Patient follows commands. Patient does not appear toxic. Patient is adequately hydrated and well- nourished. SKIN: No erythema, pallor, cyanosis or rash HEENT: Normal head, pupils equal, reactive to light and accommodation. Ears normal. Oral cavity and posterior pharynx show dry mucus membranes. Neck: Without adenopathy, no neck vein distention. LUNGS: Clear to auscultation. No wheezes, no rales, no rhonchi. HEART: No murmurs. No gallops. No rubs ABDOMEN: No masses, no rebound, no hepatomegaly or splenomegaly. Obese EXTREMITIES: No signs of trauma. No pedal or pretibial edema. No calf or thigh tenderness. NEUROLOGIC: Cranial nerves II-XII within normal limits. No gross motor sensory function deficits. Medical Decision & Procedures ER Provider Diagnostic Interpretation: Radiology results as stated below per my review and radiologist interpretation: CHEST 2 VIEWS ROUTINE CLINICAL HISTORY: Atypical chest pain COMPARISON STUDY: 12/16/2016 FINDINGS: The cardiac and mediastinal contours are normal. There is no evidence of focal pulmonary consolidation. There is no evidence of failure. No pleural effusions are visualized.[ A vague opacity within the left midlung zone is felt to represent a summation of vascular markings and rib. IMPRESSION: No active disease in the chest. Electronically signed by: Ovi Santoyo M.D. 09/10/2017 2:32 PM Dictated Date/Time: 09/10/2017 2:32 PM Laboratory Results 09/10/17 13:02 Red Blood Count 5.18, Mean Corpuscular Volume 84.7, Mean Corpuscular Hemoglobin 28.6, Mean Corpuscular Hemoglobin Concent 33.7, Mean Platelet Volume 10.5, Neutrophils (%) (Auto) 65.9, Lymphocytes (%) (Auto) 24.7, Monocytes (%) (Auto) 7.2, Eosinophils (%) (Auto) 1.5, Basophils (%) (Auto) 0.3, Neutrophils # (Auto) 4.70, Lymphocytes # (Auto) 1.76, Monocytes # (Auto) 0.51, Eosinophils # (Auto) 0.11, Basophils # (Auto) 0.02 09/10/17 13:02 Test 09/10/17 13:02 09/10/17 14:35 White Blood Count 7.13 K/uL (4.8-10.8) Red Blood Count 5.18 M/uL (4.2-5.4) Hemoglobin 14.8 g/dL (12.0-16.0) Hematocrit 43.9 % (37-47) Mean Corpuscular Volume 84.7 fL (80-100) Mean Corpuscular Hemoglobin 28.6 pg (25-34) Mean Corpuscular Hemoglobin Concent 33.7 g/dl (32-36) Platelet Count 231 K/uL (130-400) Mean Platelet Volume 10.5 fL (7.4-10.4) Neutrophils (%) (Auto) 65.9 % Lymphocytes (%) (Auto) 24.7 % Monocytes (%) (Auto) 7.2 % Eosinophils (%) (Auto) 1.5 % Basophils (%) (Auto) 0.3 % Neutrophils # (Auto) 4.70 K/uL (1.4-6.5) Lymphocytes # (Auto) 1.76 K/uL (1.2-3.4) Monocytes # (Auto) 0.51 K/uL (0.11-0.59) Eosinophils # (Auto) 0.11 K/uL (0-0.5) Basophils # (Auto) 0.02 K/uL (0-0.2) RDW Standard Deviation 41.2 fL (36.4-46.3) RDW Coefficient of Variation 13.4 % (11.5-14.5) Immature Granulocyte % (Auto) 0.4 % Immature Granulocyte # (Auto) 0.03 K/uL (0.00-0.02) Prothrombin Time 16.0 SECONDS (9.0-12.0) Prothromb Time International Ratio 1.5 (0.9-1.1) Anion Gap 6.0 mmol/L (3-11) Est Creatinine Clear Calc Drug Dose 87.1 ml/min Estimated GFR () 72.9 Estimated GFR (Non- 62.9 BUN/Creatinine Ratio 10.7 (10-20) Calcium Level 8.9 mg/dl (8.5-10.1) Total Bilirubin 0.4 mg/dl (0.2-1) Aspartate Amino Transf (AST/SGOT) 73 U/L (15-37) Alanine Aminotransferase (ALT/SGPT) 76 U/L (12-78) Alkaline Phosphatase 167 U/L (45-117) Troponin I < 0.015 ng/ml (0-0.045) Total Protein 7.4 gm/dl (6.4-8.2) Albumin 3.5 gm/dl (3.4-5.0) Globulin 3.9 gm/dl (2.5-4.0) Albumin/Globulin Ratio 0.9 (0.9-2) Beta-Hydroxybutyric Acid 1.36 mg/dL (0.2-2.81) Urine Color YELLOW Urine Appearance CLEAR (CLEAR) Urine pH 5.0 (4.5-7.5) Urine Specific Reading 1.039 (1.000-1.030) Urine Protein NEG (NEG) Urine Glucose (UA) 3+ (NEG) Urine Ketones NEG (NEG) Urine Occult Blood 1+ (NEG) Urine Nitrite POS (NEG) Urine Bilirubin NEG (NEG) Urine Urobilinogen NEG (NEG) Urine Leukocyte Esterase NEG (NEG) Urine WBC (Auto) 10-30 /hpf (0-5) Urine RBC (Auto) 0-4 /hpf (0-4) Urine Hyaline Casts (Auto) 0 /lpf (0-5) Urine Epithelial Cells (Auto) 10-20 /lpf (0-5) Urine Bacteria (Auto) 3+ (NEG) Laboratory results as stated above per my review. ECG Indication: chest pain Rate (beats per minute): 76 Rhythm: normal sinus Findings: no acute ischemic change, no ectopy ED Course 1314: Past medical records reviewed. The patient was evaluated in room B6. A complete history and physical examination was performed. 1608: I reassessed the patient at this time. She is feeling better and resting comfortably. I discussed the results and treatment plan with the patient. I answered all pertaining questions that she had. She expressed understanding and verbalized agreement. The patient will be discharged home. Medical Decision Prior records/ancillary studies reviewed. Triage Nursing notes reviewed. The patient's history was concerning for chest pain and atrial fibrillation. Differential diagnosis: Etiologies such as cardiac ischemia, aortic dissection, pulmonary embolism, pneumonia, pneumothorax, musculoskeletal, infections, pericarditis, myocarditis , atrial fibrillation, esophageal rupture, gastrointestinal, as well as others were entertained. The patient states that the symptoms today were very similar to her past experiences with atrial fibrillation. On arrival she was asymptomatic other than being very tired which was also, and after bouts of atrial fibrillation. The patient has had a past ablation. The patient has been taking her medications as prescribed. The patient drinks approximately [address] Pepper per day. She understands the implications of the excess sugar and caffeine. Multiple labs, EKG and imaging were obtained. The patient is currently in a normal sinus rhythm. Her blood sugar is in the mid 400s. The patient would like to regulate her blood sugar at home taking insulin according to a sliding scale. A short also appears to have a urinary tract infection. She was given a prescription for Macrobid. She will continue all of her current medications as prescribed. The patient will need to follow-up with her family physician. The patient was strongly encouraged to avoid all caffeinated or sweet/sugary drinks. Medication Reconcilliation Current Medication List: was personally reviewed by me Blood Pressure Screening Patient's blood pressure: Elevated blood pressure Blood pressure disposition: Referred to PCP Impression Primary Impression: History of atrial fibrillation Additional Impressions: UTI (urinary tract infection) Diabetes mellitus out of control Scribe Attestation The scribe's documentation has been prepared under my direction and personally reviewed by me in its entirety. I confirm that the note above accurately reflects all work, treatment, procedures, and medical decision making performed by me. Departure Information Dispostion Home / Self-Care Prescriptions Nitrofurantoin Monohyd Macro (MACROBID) 100 Mg Cap 100 MG PO BID, #20 CAP Prov: Surjit Manzanares M.D. 09/10/17 Referrals Chilo Goyal M.D. (PCP) Forms Call Back Authorization, HOME CARE DOCUMENTATION FORM, IMPORTANT VISIT INFORMATION Patient Instructions My [facility] Additional Instructions 1 Macrobid twice a day for 10 days. Drink extra fluids. Stop all caffeinated and sweet drinks. Problem Qualifiers
[2017-09-10 13:42] LABS: INR 1.5 (0.9-1.1)
[2017-09-10 13:45] LABS: ALB/GLOB RATIO 0.9 (0.9-2); ALT/SGPT 76 U/L (12-78); AST/SGOT 73 U/L (15-37); BLOOD UREA NITROGEN 11 mg/dl (7-18); BUN/CREATININE RATIO 10.7 (10-20); CALCIUM 8.9 mg/dl (8.5-10.1); CARBON DIOXIDE 27 mmol/L (21-32); CHLORIDE 98 mmol/L (98-107); GLUCOSE 474 mg/dl (70-99); POTASSIUM 4.1 mmol/L (3.5-5.1); SODIUM 131 mmol/L (136-145)
[2017-09-10 13:48] LABS: ALKALINE PHOSPHATASE 167 U/L (45-117)
[2017-09-10 13:55] LABS: BETA-HYDROXYBUTYRATE 1.36 mg/dL (0.2-2.81)
--- NOTE | 2017-09-10 14:34 | DIAGNOSTIC IMAGING REPORT ---
CHEST 2 VIEWS ROUTINE CLINICAL HISTORY: Atypical chest pain COMPARISON STUDY: 12/16/2016 FINDINGS: The cardiac and mediastinal contours are normal. There is no evidence of focal pulmonary consolidation. There is no evidence of failure. No pleural effusions are visualized.[ A vague opacity within the left midlung zone is felt to represent a summation of vascular markings and rib. IMPRESSION: No active disease in the chest. Electronically signed by: Ovi Santoyo M.D. 09/10/2017 2:32 PM Dictated Date/Time: 09/10/2017 2:32 PM
[2017-09-10 14:47] LABS: URINE APPEARANCE CLEAR (CLEAR); URINE BILIRUBIN NEG (NEG); URINE COLOR YELLOW; URINE NITRITE POS (NEG); URINE SPECIFIC GRAVITY 1.039 (1.000-1.030); UROBILINOGEN NEG (NEG); ZZUR CULT IF INDIC CLEAN CATCH YES
[2017-09-10 14:48] LABS: MANUAL MICROSCOPIC REQUIRED? NO; REVIEW REQ? NO
[2017-09-10] MEDS ORDERED: NITR1CAP16 PO (16:12)
[2017-09-10 16:23] VITALS: BP 145/73; PULSE 88; O2SAT 98
--- NOTE | 2017-09-12 11:21 | Pharmacy Progress Note ---
ED Pharmacist Culture FollowUp Date of Service: Sep 12, 2017. Patient was sent home with a prescription for Macrobid 100mg PO BID x 10 days, which should cover the e coli growing from the patient's URINE culture.
[2017-09-21] MEDS ORDERED: RANI300C PO (09:02)
[2017-09-21] MEDS ORDERED: DEXL60CA4 PO (09:02)
[2017-09-21] MEDS ORDERED: RQP/2 PO (09:30)
[2017-09-21] MEDS ORDERED: SUCR1TAB29 PO (09:30)
[2017-09-21] MEDS ORDERED: SOTA160T PO (09:30)
[2017-09-21] MEDS ORDERED: VNTHFA/IN INH (09:30)
[2017-09-21] MEDS ORDERED: MULT-506 PO (09:30)
[2017-09-21] MEDS ORDERED: GABA800T PO (09:30)
[2017-09-21] MEDS ORDERED: TRAMTAB5 PO (09:30)
[2017-09-21] MEDS ORDERED: FURO-85 PO (09:30)
[2017-09-21] MEDS ORDERED: CHOL100010 PO (09:30)
[2017-09-21] MEDS ORDERED: ONDA8TAB6 PO (09:30)
[2017-09-21] MEDS ORDERED: LOSA1TAB PO (09:30)
[2017-09-21] MEDS ORDERED: ADVIN25/60 INH (09:30)
[2017-09-21] MEDS ORDERED: MECL1TAB42 PO (09:30)
[2017-09-21] MEDS ORDERED: MCRK/10 PO (13:31)
[2017-09-21] MEDS ORDERED: WARF5TAB90 PO ×2 (15:45)
== END 2017-09-10 16:33 | disposition home or self-care (01) ==
LOC: C.EDB 12:35
DX: Z86.79 Personal history of other diseases of the circulatory system (principal); N39.0 Urinary tract infection, site not specified; E11.43 Type 2 diabetes mellitus with diabetic autonomic (poly)neuropathy; J45.909 Unspecified asthma, uncomplicated; I10 Essential (primary) hypertension; E78.2 Mixed hyperlipidemia; K58.9 Irritable bowel syndrome, unspecified; K21.0 Gastro-esophageal reflux disease with esophagitis; Z90.710 Acquired absence of both cervix and uterus; Z79.01 Long term (current) use of anticoagulants; Z79.82 Long term (current) use of aspirin; Z79.4 Long term (current) use of insulin; Z79.84 Long term (current) use of oral hypoglycemic drugs; Z83.3 Family history of diabetes mellitus

== ENCOUNTER 2017-09-21 16:18 | Emergency (ER) | payer OTHER ==
[~2017-09-21] VITALS: Ht 165.1 cm; Wt 133.8 kg
[~2017-09-21 16:18] MED LIST changes: +ADVIN25/60 INH; +CHOL100010 PO; +DEXL60CA4 PO; +FURO-85 PO; +GABA800T PO; +LOSA1TAB PO; +MCRK/10 PO; +MECL1TAB42 PO; +MULT-506 PO; +NITR1CAP16 PO; +ONDA8TAB6 PO; +RANI300C PO; +RQP/2 PO; +SOTA160T PO; +SUCR1TAB29 PO; +TRAMTAB5 PO; +VNTHFA/IN INH; +WARF5TAB90 PO
[2017-09-21 16:44] VITALS: Ht 165.1 cm; Wt 133.8 kg
[2017-09-21] MEDS ORDERED: SODIUM CHLORIDE 0.9% 1000ML 1,000 ML IV ONE (17:08)
[2017-09-21] MEDS ORDERED: PROCHLORPERAZINE 5 MG/ML 2 ML VIAL IV STA (17:10)
[2017-09-21] MEDS ORDERED: MAGNESIUM SULFATE 1GM / D5W 1 GM BAG IV STA (17:10)
[2017-09-21] MEDS ORDERED: DiphenhydrAMINE HCL 50 MG/ML VIAL IV STA (17:10)
[2017-09-21] MEDS ORDERED: ACETAMINOPHEN IV 100 ML IV STA (17:10)
[2017-09-21] MEDS ORDERED: LEVALBUTEROL 1.25MG/3ML NEB INH STA (17:16)
--- NOTE | 2017-09-21 17:17 | EMERGENCY ROOM VISIT NOTE ---
History Report prepared by Kalpesh: Max Lorenzo Under the Supervision of: Dr. Onesimo Piper M.D. First contact with patient: 16:59 Chief Complaint: COUGH Stated Complaint: DEEP COUGH, CHEST PAIN, SORE THROAT Nursing Triage Summary: cough fever congestion since yesterday History of Present Illness The patient is a 57 year old female who presents to the Emergency Room with complaints of a worsening headache that began 1 day ago. Patient describes the headache as the "worst headache of her life". She states that the headache " does not go away". She adds that she has not taken any medications to relieve the symptoms. She has associated symptoms of neck pain, sore throat, and a cough. She denies a history of these symptoms. She adds that she is currently taking Coumadin for a history of atrial fibrillation. She adds that she has 2 pills left of her Macrobid. Patient states her sugar levels are not under control. She adds that she has stopped drinking Dr. Pepper. She denies getting a flu shot this year. She states that she does not use oxygen at home. Source of History: patient Onset: 1 day ago Position: head Timing: worsening Associated Symptoms: + sorethroat, + cough, + neck pain Review of Systems See HPI for pertinent positives & negatives. A total of 10 systems reviewed and were otherwise negative. Past Medical & Surgical Medical Problems: (1) Asthma, Unspecified (2) Atrial fibrillation (3) Bulging disc (4) Calculus Of Ureter (5) Diab Augustina Wo Compl, Type Ii Or Unspec Type, Not Uncntrld (6) Gastroparesis (7) Hypertension Nos (8) IBS (irritable bowel syndrome) (9) Mixed Hyperlipidemia (10) Paroxysmal atrial fibrillation (11) Reflux Esophagitis (12) TIA Surgical Problems: (1) Appendectomy (2) Carpal tunnel surgery (3) Cholecystectomy (4) H/O cardiac catheterization (5) Hysterectomy (6) S/P ablation of atrial fibrillation Family History Diabetes mellitus FATHER FH: cancer FATHER Social History Smoking Status: Never Smoker Alcohol Use: none Drug Use: none Marital Status: Housing Status: lives with family Occupation Status: disabled Current/Historical Medications Scheduled Aspirin (Aspirin Ec), 81 MG PO QAM Atorvastatin (Atorvastatin Calcium), 40 MG PO QPM Buspirone HCl (Buspirone HCl), 10 MG PO QAM Cholecalciferol (Vitamin D), 1,000 INTER.UNIT PO QAM Dexlansoprazole (Dexilant), 60 MG PO BID Furosemide (Lasix), 20 MG PO QAM Gabapentin (Neurontin), 800 MG PO TID Insulin Glargine (Lantus Solostar), 46 UNITS SC AMPM Insulin Regular (Human) (Novolin R U-100), 45 UNITS SC AC Losartan Potassium (Cozaar), 25 MG PO QPM Metformin HCl (Metformin HCl), 1,000 MG PO BID Metoprolol Tartrate (Metoprolol Tartrate), 50 MG PO BID Mirtazapine (Remeron), 30 MG PO HS Multivitamin (Multivitamin), 1 TAB PO QAM Oseltamivir Phosphate (Tamiflu), 75 MG PO BID Pioglitazone Hcl (Pioglitazone Hcl), 15 MG PO QAM Potassium Chloride (K-Tabs), 10 MEQ PO BID Ranitidine Hcl (Ranitidine Hcl), 300 MG PO HS Ropinirole Hydrochloride (Requip), 2 MG PO TID Sotalol Hcl (Sotalol Hcl), 160 MG PO BID Sucralfate (Carafate), 1 GM PO QID Venlafaxine Hcl (Effexor Extended Rel), 75 MG PO DAILY Venlafaxine Hcl (Effexor Extended Rel), 150 MG PO DAILY Warfarin Sodium (Coumadin), 15 MG PO 2XWK Warfarin Sodium (Coumadin), 10 MG PO 5XWK Scheduled PRN Albuterol Hfa (Ventolin Hfa), 2-4 PUFFS INH Q6H PRN for Shortness of Breath Fluticasone Prop/Salmeterol (Advair Diskus 250/50 60 Dose), 1 PUFF INH BID PRN for Shortness of Breath Meclizine Hcl (Meclizine Hcl), 25 MG PO TID PRN for Dizziness or Vertigo Ondansetron Hcl (Zofran), 8 MG PO Q8H PRN for Nausea Tramadol/Acetaminophen (Ultracet), 1 TAB PO QID PRN for Pain Allergies Coded Allergies: Penicillins (Verified Allergy, Mild, hives, 08/23/17) Amoxicillin (Unverified Allergy, Unknown, hives, 08/23/17) FROM DISPERMOX Dust (Verified Allergy, Unknown, HAY FEVER, 08/23/17) POLLEN (Verified Allergy, Unknown, HAY FEVER, 08/23/17) Quinolones (Unverified Adverse Reaction, Unknown, GI UPSET, 08/23/17) Sitagliptin (Verified Adverse Reaction, Unknown, abdominal pain, 08/23/17) Physical Exam Vital Signs Date Time Temp Pulse Resp B/P (MAP) Pulse Ox O2 Delivery O2 Flow Rate FiO2 09/21/17 20:49 75 20 130/77 96 09/21/17 19:35 37.2 09/21/17 19:18 73 20 123/71 96 Nasal Cannula 4.0 09/21/17 17:43 95 Nasal Cannula 4.0 09/21/17 17:30 110 09/21/17 16:44 39.4 119 20 160/84 91 Room Air Physical Exam GENERAL: Patient is a healthy-appearing well-nourished female HEAD: Normocephalic atraumatic. No evidence of encephalitis or meningitis upon examination. EYES: Ocular movements intact pupils equal and react to light OROPHARYNX mucous membranes are moist no exudates present no erythema or edema present NECK: Supple no nuchal rigidity CHEST: Good equal expansion LUNGS: Bilateral course lung sounds CARDIAC: Normal S1 and S2 ABDOMEN: Soft nontender no guarding BACK: No CVA tenderness EXTREMITIES: No pain upon palpation normal muscle strength in all groups no clubbing cyanosis or edema NEURO: Patient is following commands and answering questions appropriately. Alert and oriented x3 Cranial Nerves 2-12 grossly intact Medical Decision & Procedures ER Provider Diagnostic Interpretation: Radiology results as stated below per my review and radiologist interpretation: CT HEAD WITHOUT CONTRAST (CT) CLINICAL HISTORY: Severe headache COMPARISON STUDY: 12/09/2010 TECHNIQUE: Axial CT of the brain is performed from the vertex to the skull base. IV contrast was not administered for this examination. A dose lowering technique was utilized adhering to the principles of ALARA. CT DOSE: 537.48 mGy.cm FINDINGS: No intra or extra-axial mass lesions are visualized. There is no CT evidence of acute cortical infarction. There is no evidence of midline shift. There is no acute hemorrhage. No calvarial fractures are visualized. There are minor white matter hypodensities likely on a small vessel basis. There is no evidence of pathologic ventricular dilatation. There is no evidence of acute sinusitis. There is a partially calcified right frontal scalp nodule, possibly representing a sebaceous cyst. IMPRESSION: No acute intracranial findings Electronically signed by: Ovi Santoyo M.D. 09/21/2017 8:13 PM CHEST ONE VIEW PORTABLE CLINICAL HISTORY: 57 years-old Female presenting with Sepsis. TECHNIQUE: Portable upright AP view of the chest was obtained. COMPARISON: 09/10/2017. FINDINGS: Atherosclerosis of the aortic arch. Cardiac silhouette normal in size. Prominent pulmonary vasculature. Mildly low lung volumes with hypoventilatory changes. No focal infiltrate. No large effusion or pneumothorax. Degenerative changes of the thoracic spine. Upper abdomen normal. IMPRESSION: 1. Mildly low lung volumes with hypoventilatory changes. No focal infiltrate to suggest pneumonia. Electronically signed by: Andry Hernandez M.D. 09/21/2017 6:03 PM Laboratory Results 09/21/17 17:30 Red Blood Count 4.92, Mean Corpuscular Volume 86.0, Mean Corpuscular Hemoglobin 28.3, Mean Corpuscular Hemoglobin Concent 32.9, Mean Platelet Volume 10.1, Neutrophils (%) (Auto) 83.1, Lymphocytes (%) (Auto) 8.7, Monocytes (%) (Auto) 7.4, Eosinophils (%) (Auto) 0.4, Basophils (%) (Auto) 0.2, Neutrophils # (Auto) 3.83, Lymphocytes # (Auto) 0.40, Monocytes # (Auto) 0.34, Eosinophils # (Auto) 0.02, Basophils # (Auto) 0.01 09/21/17 17:30 Test 09/21/17 17:30 09/21/17 17:46 09/21/17 17:50 09/21/17 18:25 White Blood Count 4.61 K/uL (4.8-10.8) Red Blood Count 4.92 M/uL (4.2-5.4) Hemoglobin 13.9 g/dL (12.0-16.0) Hematocrit 42.3 % (37-47) Mean Corpuscular Volume 86.0 fL (80-100) Mean Corpuscular Hemoglobin 28.3 pg (25-34) Mean Corpuscular Hemoglobin Concent 32.9 g/dl (32-36) Platelet Count 176 K/uL (130-400) Mean Platelet Volume 10.1 fL (7.4-10.4) Neutrophils (%) (Auto) 83.1 % Lymphocytes (%) (Auto) 8.7 % Monocytes (%) (Auto) 7.4 % Eosinophils (%) (Auto) 0.4 % Basophils (%) (Auto) 0.2 % Neutrophils # (Auto) 3.83 K/uL (1.4-6.5) Lymphocytes # (Auto) 0.40 K/uL (1.2-3.4) Monocytes # (Auto) 0.34 K/uL (0.11-0.59) Eosinophils # (Auto) 0.02 K/uL (0-0.5) Basophils # (Auto) 0.01 K/uL (0-0.2) RDW Standard Deviation 42.7 fL (36.4-46.3) RDW Coefficient of Variation 13.5 % (11.5-14.5) Immature Granulocyte % (Auto) 0.2 % Immature Granulocyte # (Auto) 0.01 K/uL (0.00-0.02) Prothrombin Time 17.9 SECONDS (9.0-12.0) Prothromb Time International Ratio 1.7 (0.9-1.1) Activated Partial Thromboplast Time 35.7 SECONDS (21.0-31.0) Partial Thromboplastin Ratio 1.4 Est Creatinine Clear Calc Drug Dose 124.3 ml/min Estimated GFR () 112.3 Estimated GFR (Non- 96.9 BUN/Creatinine Ratio 8.7 (10-20) Calcium Level 8.3 mg/dl (8.5-10.1) Total Bilirubin 0.5 mg/dl (0.2-1) Aspartate Amino Transf (AST/SGOT) 171 U/L (15-37) Alanine Aminotransferase (ALT/SGPT) 95 U/L (12-78) Alkaline Phosphatase 125 U/L (45-117) Total Creatine Kinase 61 U/L (26-192) Creatine Kinase MB < 0.5 ng/ml (0.5-3.6) Creatine Kinase MB Ratio (0-3.0) Troponin I < 0.015 ng/ml (0-0.045) Total Protein 7.2 gm/dl (6.4-8.2) Albumin 3.5 gm/dl (3.4-5.0) Globulin 3.7 gm/dl (2.5-4.0) Albumin/Globulin Ratio 0.9 (0.9-2) Beta-Hydroxybutyric Acid 1.22 mg/dL (0.2-2.81) Procalcitonin 0.06 ng/ml (0-0.5) Influenza Type A Antigen POS for Influ A (NEG) Influenza Type B Antigen Neg for Influ B (NEG) Bedside D-Dimer 138 ng/mlFEU (0-450) Bedside Lactic Acid Venous 1.66 mmol/L (0.90-1.70) Bedside Hemoglobin 14.3 g/dl (12.0-16.0) Bedside Hematocrit 42 % (37-47) Bedside Sodium 137 mEq/L (135-144) Bedside Potassium 3.7 mEq/L (3.3-5.0) Bedside Chloride 95 mEq/L (101-112) Bedside Total CO2 26 mEq/l (24-31) Anion Gap 20.0 mmol/L (16-25) Bedside Blood Urea Nitrogen 5 mg/dl (7-18) Bedside Creatinine 0.6 mg/dl (0.6-1.3) Bedside Glucose (other) 172 mg/dl (70-99) Bedside Ionized Calcium (Betty) 1.10 mmol/l (1.12-1.32) Arterial Blood pH 7.42 (7.35-7.45) Arterial Blood Partial Pressure CO2 43 mmHg (35-46) Arterial Blood Partial Pressure O2 81 mm/Hg (80-95) Arterial Blood HCO3 27 mmol/L (19-24) Arterial Blood Oxygen Saturation 95.8 % (90-95) Arterial Blood Base Excess 2.5 mEq/L (-9-1.8) Arterial Blood Gas Delivery 4 LITERS O2 Mazin Test POS (POS) Test 09/21/17 19:00 Urine Color YELLOW Urine Appearance CLOUDY (CLEAR) Urine pH 8.5 (4.5-7.5) Urine Specific [place] 1.022 (1.000-1.030) Urine Protein NEG (NEG) Urine Glucose (UA) NEG (NEG) Urine Ketones NEG (NEG) Urine Occult Blood NEG (NEG) Urine Nitrite NEG (NEG) Urine Bilirubin NEG (NEG) Urine Urobilinogen NEG (NEG) Urine Leukocyte Esterase SMALL (NEG) Urine WBC (Auto) >30 /hpf (0-5) Urine RBC (Auto) 0-4 /hpf (0-4) Urine Hyaline Casts (Auto) 1-5 /lpf (0-5) Urine Epithelial Cells (Auto) 10-20 /lpf (0-5) Urine Bacteria (Auto) 4+ (NEG) Labs reviewed by ED physician. Medications Administered Medications (Trade) Dose Ordered Sig/Victorina Route Start Time Stop Time Status Last Admin Dose Admin Sodium Chloride 1,000 ml @ 999 mls/hr Q1H1M ONCE IV 09/21/17 17:08 09/21/17 18:08 DC 09/21/17 17:48 999 MLS/HR Acetaminophen 100 ml @ 400 mls/hr NOW STAT IV 09/21/17 17:10 09/21/17 17:24 DC 09/21/17 17:47 400 MLS/HR Prochlorperazine Edisylate (Compazine Inj) 10 mg NOW STAT IV 09/21/17 17:10 09/21/17 17:14 DC 09/21/17 17:48 10 MG Diphenhydramine HCl (Benadryl Inj) 50 mg NOW STAT IV 09/21/17 17:10 09/21/17 17:14 DC 09/21/17 17:48 50 MG Magnesium Sulfate (Magnesium Sulfate) 1 gm NOW STAT IV 09/21/17 17:10 09/21/17 17:14 DC 09/21/17 19:20 1 GM Levalbuterol (Xopenex 1.25MG/ 3ML Neb) 1.25 mg NOW STAT INH 09/21/17 17:16 09/21/17 17:17 DC 09/21/17 17:16 1.25 MG Methylprednisolone Sodium Succinate (Solu-Medrol IV) 60 mg NOW STAT IV 09/21/17 18:43 09/21/17 18:44 DC 09/21/17 19:21 60 MG Oseltamivir Phosphate (Tamiflu Cap) 75 mg NOW STAT PO 09/21/17 18:48 09/21/17 18:49 DC 09/21/17 19:20 75 MG ECG Indication: chest pain Rate (beats per minute): 113 Rhythm: sinus tachycardia Findings: no acute ischemic change, no ectopy ED Course 1705: Past medical records reviewed. The patient was evaluated in room C8. A complete history and physical examination was performed. 1708: Sodium Chloride 1000 ml @ 999 mls/hr IV 1710: Magnesium Sulfate 1gm IV, Benadryl Inj 50mg IV, Compazine Inj 10mg IV, Acetaminophen 100ml @ 400mls/hr IV 171: Levalbuterol 1.25mg INH 1842: Solu-Medrol IV 60mg IV 1844: I reassessed the patient who is resting comfortably. 1847: Tamiflu Cap 75mg PO 2026: Upon reexamination the patient is resting comfortably. I discussed results and treatment plan with the patient. She verbalizes agreement and understanding. The patient is ready for discharge. Medical Decision Differential diagnosis: Etiologies such as viral syndrome, otitis, pharyngitis, pneumonia, influenza, meningitis, urinary tract infection, sepsis, bacteremia, as well as others were entertained. This is a 57-year-old female who presents emergency department complaining of headache. She has no evidence of meningitis encephalitis on examination. She does not have an elevation in her white blood count cell count therefore my suspicion of meningitis exceedingly low. In addition the patient was given Toradol Compazine and Benadryl. Repeat examination revealed improvement the patient's symptoms. The patient is positive for flu and she was placed on Tamiflu. I do believe that the patient is well enough to be discharged home. She will return if any difficulty breathing or fevers or out of control. Patient is in agreement with the treatment plan. Medication Reconcilliation Current Medication List: was personally reviewed by me Blood Pressure Screening Patient's blood pressure: Normal blood pressure Blood pressure disposition: Did not require urgent referral Impression Primary Impression: Flu Scribe Attestation The scribe's documentation has been prepared under my direction and personally reviewed by me in its entirety. I confirm that the note above accurately reflects all work, treatment, procedures, and medical decision making performed by me. Departure Information Dispostion Home / Self-Care Prescriptions Oseltamivir Phosphate (Tamiflu) 75 Mg Cap 75 MG PO BID, #10 CAP Prov: Onesimo Piper MD 09/21/17 Referrals No Doctor, Assigned (PCP) Forms HOME CARE DOCUMENTATION FORM, IMPORTANT VISIT INFORMATION Patient Instructions ED Fever Control, ED Flu, My [facility] Additional Instructions Take 1000 mg Tylenol every 6 hours Increase fluids next 48 hours You were found to have an elevated blood pressure today (>120 sytolic or >90 diastolic). Per medicare guidelines, you need to follow up with this blood pressure screening with your Primary Care Physician (PCP). For a new PCP call [phone]. You have been examined and treated today on an emergency basis only. This is not a substitute for, or an effort to provide, complete comprehensive medical care. It is impossible to recognize and treat all injuries or illnesses in a single emergency department visit. It is therefore important that you follow up closely with Dr Goyal. Call as soon as possible for an appointment. Thank you for your time and consideration. I look forward to speaking with you again soon. Please don't hesitate to call us if you have any questions.
[2017-09-21] MEDS ORDERED: EFFSR150 PO (17:35)
[2017-09-21] MEDS ORDERED: EFFSR75 PO (17:35)
[2017-09-21] MEDS ORDERED: MIRT30TA3 PO (17:35)
[2017-09-21] MEDS ORDERED: INSDGIPEN SC (17:35)
[2017-09-21] MEDS ORDERED: INSUINJ7 SC (17:35)
[2017-09-21] MEDS ORDERED: PIOG1TAB25 PO (17:35)
[2017-09-21] MEDS ORDERED: LPT40 PO (17:35)
[2017-09-21] MEDS ORDERED: GLC500 PO (17:35)
[2017-09-21] MEDS ORDERED: ASPI81TA28 PO (17:39)
[2017-09-21 17:43] VITALS: O2SAT 95
[2017-09-21] MEDS ORDERED: LPR50X PO (17:51)
[2017-09-21 18:00] LABS: BASO % 0.2 %; BASO ABS # 0.01 K/uL (0-0.2); EOS % 0.4 %; EOS ABS # 0.02 K/uL (0-0.5); HEMATOCRIT 42.3 % (37-47); HEMOGLOBIN 13.9 g/dL (12.0-16.0); IG# 0.01 K/uL (0.00-0.02); LYMPH % 8.7 %; MEAN CORPUSCULAR HEMOGLOBIN 28.3 pg (25-34); MEAN CORPUSCULAR HGB CONC 32.9 g/dl (32-36); MEAN PLATELET VOLUME 10.1 fL (7.4-10.4); MONO % 7.4 %; MONO ABS # 0.34 K/uL (0.11-0.59); NEUT % 83.1 %; NEUT ABS # 3.83 K/uL (1.4-6.5); PLATELET COUNT 176 K/uL (130-400); RED CELL DISTRIBUTION WIDTH CV 13.5 % (11.5-14.5); RED CELL DISTRIBUTION WIDTH SD 42.7 fL (36.4-46.3); WHITE BLOOD COUNT 4.61 K/uL (4.8-10.8)
[2017-09-21 18:01] LABS: ISTAT CREATININE 0.6 mg/dl (0.6-1.3); ISTAT IONIZED CALCIUM 1.1 mmol/l (1.12-1.32); ISTAT POTASSIUM 3.7 mEq/L (3.3-5.0)
--- NOTE | 2017-09-21 18:04 | DIAGNOSTIC IMAGING REPORT ---
CHEST ONE VIEW PORTABLE CLINICAL HISTORY: 57 years-old Female presenting with Sepsis. TECHNIQUE: Portable upright AP view of the chest was obtained. COMPARISON: 09/10/2017. FINDINGS: Atherosclerosis of the aortic arch. Cardiac silhouette normal in size. Prominent pulmonary vasculature. Mildly low lung volumes with hypoventilatory changes. No focal infiltrate. No large effusion or pneumothorax. Degenerative changes of the thoracic spine. Upper abdomen normal. IMPRESSION: 1. Mildly low lung volumes with hypoventilatory changes. No focal infiltrate to suggest pneumonia. Electronically signed by: Andry Hernandez M.D. 09/21/2017 6:03 PM Dictated Date/Time: 09/21/2017 6:02 PM
[2017-09-21 18:19] LABS: ALBUMIN 3.5 gm/dl (3.4-5.0); ALT/SGPT 95 U/L (12-78); AST/SGOT 171 U/L (15-37); BLOOD UREA NITROGEN 6 mg/dl (7-18); CALCIUM 8.3 mg/dl (8.5-10.1); CARBON DIOXIDE 28 mmol/L (21-32); GLUCOSE 163 mg/dl (70-99); POTASSIUM 3.8 mmol/L (3.5-5.1); SODIUM 135 mmol/L (136-145)
[2017-09-21 18:21] LABS: INR 1.7 (0.9-1.1); PTT PATIENT 35.7 SECONDS (21.0-31.0)
[2017-09-21 18:24] LABS: ALKALINE PHOSPHATASE 125 U/L (45-117); CKMB < 0.5 ng/ml (0.5-3.6); TOTAL PROTEIN 7.2 gm/dl (6.4-8.2)
[2017-09-21] MEDS ORDERED: METHYLPREDNISOLONE 125 MG VIAL IV STA (18:43)
[2017-09-21 18:47] LABS: INFLUENZA B ANTIGEN Neg for Influ B (NEG)
[2017-09-21] MEDS ORDERED: OSELTAMIVIR PHOSPHATE 75 MG CAP PO STA (18:48)
[2017-09-21] MEDS ORDERED: MAGNESIUM SULFATE 1GM / D5W 1 GM BAG ONE (19:17)
[2017-09-21 19:35] VITALS: TEMP 37.2
--- NOTE | 2017-09-21 20:15 | DIAGNOSTIC IMAGING REPORT ---
CT HEAD WITHOUT CONTRAST (CT) CLINICAL HISTORY: Severe headache COMPARISON STUDY: 12/09/2010 TECHNIQUE: Axial CT of the brain is performed from the vertex to the skull base. IV contrast was not administered for this examination. A dose lowering technique was utilized adhering to the principles of ALARA. CT DOSE: 537.48 mGy.cm FINDINGS: No intra or extra-axial mass lesions are visualized. There is no CT evidence of acute cortical infarction. There is no evidence of midline shift. There is no acute hemorrhage. No calvarial fractures are visualized. There are minor white matter hypodensities likely on a small vessel basis. There is no evidence of pathologic ventricular dilatation. There is no evidence of acute sinusitis. There is a partially calcified right frontal scalp nodule, possibly representing a sebaceous cyst. IMPRESSION: No acute intracranial findings Electronically signed by: Ovi Santoyo M.D. 09/21/2017 8:13 PM Dictated Date/Time: 09/21/2017 8:12 PM
[2017-09-21] MEDS ORDERED: NF406 PO (20:30)
[2017-09-21 20:49] VITALS: BP 130/77; PULSE 75; O2SAT 96
[2017-09-21] MEDS ORDERED: BSP/10 PO (22:24)
== END 2017-09-21 21:05 | disposition home or self-care (01) ==
LOC: C.EDB 16:20 → C.EDC 21:05
DX: J11.1 Influenza due to unidentified influenza virus with other respiratory manifestations (principal); R51 Headache; R00.0 Tachycardia, unspecified; I48.91 Unspecified atrial fibrillation; I10 Essential (primary) hypertension; E11.9 Type 2 diabetes mellitus without complications; K31.84 Gastroparesis; E78.2 Mixed hyperlipidemia; K21.0 Gastro-esophageal reflux disease with esophagitis; K58.9 Irritable bowel syndrome, unspecified; J45.909 Unspecified asthma, uncomplicated; Z87.440 Personal history of urinary (tract) infections; Z86.73 Personal history of transient ischemic attack (TIA), and cerebral infarction without residual deficits; Z90.49 Acquired absence of other specified parts of digestive tract; Z90.710 Acquired absence of both cervix and uterus; Z98.890 Other specified postprocedural states; Z79.82 Long term (current) use of aspirin; Z79.01 Long term (current) use of anticoagulants; Z79.4 Long term (current) use of insulin; Z79.899 Other long term (current) drug therapy; Z88.0 Allergy status to penicillin; Z88.1 Allergy status to other antibiotic agents; Z88.8 Allergy status to other drugs, medicaments and biological substances; Z83.3 Family history of diabetes mellitus; Z80.9 Family history of malignant neoplasm, unspecified

== ENCOUNTER 2017-10-01 16:13 | Emergency (ER) | payer OTHER ==
[~2017-10-01] VITALS: Ht 165.1 cm; Wt 135.0 kg
[~2017-10-01 16:13] MED LIST changes: -ACT15 PO; -ASPCH81X PO; -ATOR-24 PO; -BUPR-79 PO; -GLC/500 PO; -INSDGI SC; -MIRT30TA2 PO; -NITR1CAP16 PO; -NVLRB SC; +OSEL75CA23 PO; -VENL150T33 PO; -VENL75CA PO
[2017-10-01 16:16] VITALS: TEMP 36.8; Ht 165.1 cm; Wt 135.0 kg
[2017-10-01] MEDS ORDERED: ALBUT/IPRATROP 3MG/0.5MG NEB 3 ML VIAL INH STA (16:27)
[2017-10-01] MEDS ORDERED: BENZONATATE 100MG CAP PO ONE ×2 (16:30→18:30)
--- NOTE | 2017-10-01 16:34 | EMERGENCY ROOM VISIT NOTE ---
History Report prepared by Kalpesh: Max Lorenzo Under the Supervision of: Dr. Gaetano Dasilva M.D. First contact with patient: 16:20 Chief Complaint: COUGH Stated Complaint: COUGHING UNTIL I PUKE, RIGHT LUNG PAIN Nursing Triage Summary: Pt c/o "coughing til I puke and I can feel in my right lung area something doesn't feel right. My is admitted for Pneumonia and +Flu," Had Influenza on 09/20, still has the cough. History of Present Illness The patient is a 57 year old female who presents to the Emergency Room with complaints of a worsening productive cough that began 10 days ago. Patient states that 10 days ago she was diagnosed with Influenza A at the ED. She was discharged with Tamiflu. She states that she feels like the flu-like symptoms have passed except for the cough. She describes the cough as "deep in her chest " and on the right side. She states she is puking up "yellow" mucous with coughing. She has associated symptoms of chest pain. She states that pressure on the chest exacerbates her chest pain. She denies fevers, stuffy nose, urinary symptoms, and diarrhea. Patient states her is currently in the hospital for pneumonia. She denies a history of smoking and asthma. Patient adds that she takes Coumadin for her history of Atrial Fibrillation. She states she has ProAir at home, but rarely uses it. She states it is a year old. Patient adds that she has used Codeine for her cough symptoms in the past, but it was not successful in suppressing her cough. She states she saw her PCP 3 days ago with similar symptoms. On the patient's ER visit 10 days ago she had a UA done that grew E. Coli. She had a Chest X-Ray performed that showed no pneumonia. Patient was also complaining of a headache during that visit and she had a CT Head done that was negative for bleeding. Source of History: patient Onset: 10 days ago Timing: worsening Modifying Factors (Relieving): other (None) Associated Symptoms: + chest pain, No fevers, No diarrhea, No urinary symptoms Review of Systems See HPI for pertinent positives & negatives. A total of 10 systems reviewed and were otherwise negative. Past Medical & Surgical Medical Problems: (1) Asthma, Unspecified (2) Atrial fibrillation (3) Bulging disc (4) Calculus Of Ureter (5) Diab Augustina Wo Compl, Type Ii Or Unspec Type, Not Uncntrld (6) Gastroparesis (7) Hypertension Nos (8) IBS (irritable bowel syndrome) (9) Mixed Hyperlipidemia (10) Paroxysmal atrial fibrillation (11) Reflux Esophagitis (12) TIA Surgical Problems: (1) Appendectomy (2) Carpal tunnel surgery (3) Cholecystectomy (4) H/O cardiac catheterization (5) Hysterectomy (6) S/P ablation of atrial fibrillation Family History Diabetes mellitus FATHER FH: cancer FATHER Social History Smoking Status: Never Smoker Alcohol Use: none Drug Use: none Marital Status: Housing Status: lives with family Occupation Status: disabled Current/Historical Medications Scheduled Albuterol Hfa (Ventolin Hfa), 3 PUFFS INH Q6H Aspirin (Aspirin Ec), 81 MG PO QAM Atorvastatin (Lipitor), 40 MG PO QPM Azithromycin (Zithromax Z-Lex), 0 PO UD Benzonatate (Tessalon Perles), 1-2 CAP PO TID Buspirone HCl (Buspirone HCl), 10 MG PO QAM Cholecalciferol (Vitamin D), 1,000 INTER.UNIT PO QAM Dexlansoprazole (Dexilant), 60 MG PO BID Furosemide (Lasix), 20 MG PO QAM Gabapentin (Neurontin), 800 MG PO TID Insulin Glargine (Lantus Solostar), 46 UNITS SC AMPM Insulin Regular (Human) (Novolin R U-100), 45 UNITS SC AC Losartan Potassium (Cozaar), 25 MG PO QPM Metformin HCl (Metformin HCl), 1,000 MG PO BID Metoprolol Tartrate (Metoprolol Tartrate), 50 MG PO BID Mirtazapine (Remeron), 30 MG PO HS Multivitamin (Multivitamin), 1 TAB PO QAM Pioglitazone Hcl (Pioglitazone Hcl), 15 MG PO QAM Potassium Chloride (K-Tabs), 10 MEQ PO BID Ranitidine Hcl (Ranitidine Hcl), 300 MG PO HS Ropinirole Hydrochloride (Requip), 2 MG PO TID Sotalol Hcl (Sotalol Hcl), 160 MG PO BID Sucralfate (Carafate), 1 GM PO QID Venlafaxine Hcl (Effexor Extended Rel), 75 MG PO DAILY Venlafaxine Hcl (Effexor Extended Rel), 150 MG PO DAILY Warfarin Sodium (Coumadin), 15 MG PO 2XWK Warfarin Sodium (Coumadin), 10 MG PO 5XWK Scheduled PRN Albuterol Hfa (Ventolin Hfa), 2-4 PUFFS INH Q6H PRN for Shortness of Breath Fluticasone Prop/Salmeterol (Advair Diskus 250/50 60 Dose), 1 PUFF INH BID PRN for Shortness of Breath Meclizine Hcl (Meclizine Hcl), 25 MG PO TID PRN for Dizziness or Vertigo Ondansetron Hcl (Zofran), 8 MG PO Q8H PRN for Nausea Tramadol/Acetaminophen (Ultracet), 1 TAB PO QID PRN for Pain Allergies Coded Allergies: Penicillins (Verified Allergy, Mild, hives, 08/23/17) Amoxicillin (Unverified Allergy, Unknown, hives, 08/23/17) FROM DISPERMOX Dust (Verified Allergy, Unknown, HAY FEVER, 08/23/17) POLLEN (Verified Allergy, Unknown, HAY FEVER, 08/23/17) Quinolones (Unverified Adverse Reaction, Unknown, GI UPSET, 08/23/17) Sitagliptin (Verified Adverse Reaction, Unknown, abdominal pain, 08/23/17) Physical Exam Vital Signs Date Time Temp Pulse Resp B/P (MAP) Pulse Ox O2 Delivery O2 Flow Rate FiO2 10/01/17 18:15 76 20 155/94 91 Room Air 10/01/17 16:19 95 Room Air 10/01/17 16:16 36.8 79 20 143/79 95 Room Air Physical Exam GENERAL: Patient is in no acute distress. HEENT: No acute trauma, normocephalic atraumatic, mucous membranes moist, no nasal congestion, no scleral icterus. NECK: No stridor, no adenopathy, no meningismus, trachea is midline. LUNGS: Fairly full breath sounds that are equal, wheezing more so on the right, no crackles heard. Moist cough noted. CHEST: Tenderness over the mid sternum and over the right chest wall HEART: Without murmurs gallops or rubs, regular rate and rhythm. ABDOMEN: Soft, nontender, bowel sounds positive, no hernias, no peritonitis. EXTREMITIES: No cyanosis or edema, full range of motion of all the joints without pain or difficulty, no signs for acute trauma. NEUROLOGIC: Oriented x 3, no acute motor or sensory deficits, no focal weakness. SKIN: No rash, no jaundice, no diaphoresis. Medical Decision & Procedures ER Provider Diagnostic Interpretation: Radiology results as stated below per my review and radiologist interpretation: CHEST 2 VIEWS ROUTINE HISTORY: EVALUATE RESPIRATORY DISTRESS.DYSPNEA COMPARISON: Chest 09/21/2017. FINDINGS: There are low lung volumes. The heart remains borderline enlarged. The lungs are clear. No pleural effusions. No pneumothorax. IMPRESSION: No significant change compared to the prior study. No acute process. Electronically signed by: Brandin Montejo M.D. 10/01/2017 5:58 PM Laboratory Results 10/01/17 16:35 Red Blood Count 4.78, Mean Corpuscular Volume 85.4, Mean Corpuscular Hemoglobin 28.2, Mean Corpuscular Hemoglobin Concent 33.1, Mean Platelet Volume 9.7, Neutrophils (%) (Auto) 70.8, Lymphocytes (%) (Auto) 20.5, Monocytes (%) (Auto) 7.1, Eosinophils (%) (Auto) 1.0, Basophils (%) (Auto) 0.2, Neutrophils # (Auto) 7.23, Lymphocytes # (Auto) 2.09, Monocytes # (Auto) 0.72, Eosinophils # (Auto) 0.10, Basophils # (Auto) 0.02 10/01/17 16:35 Test 10/01/17 16:35 White Blood Count 10.20 K/uL (4.8-10.8) Red Blood Count 4.78 M/uL (4.2-5.4) Hemoglobin 13.5 g/dL (12.0-16.0) Hematocrit 40.8 % (37-47) Mean Corpuscular Volume 85.4 fL (80-100) Mean Corpuscular Hemoglobin 28.2 pg (25-34) Mean Corpuscular Hemoglobin Concent 33.1 g/dl (32-36) Platelet Count 225 K/uL (130-400) Mean Platelet Volume 9.7 fL (7.4-10.4) Neutrophils (%) (Auto) 70.8 % Lymphocytes (%) (Auto) 20.5 % Monocytes (%) (Auto) 7.1 % Eosinophils (%) (Auto) 1.0 % Basophils (%) (Auto) 0.2 % Neutrophils # (Auto) 7.23 K/uL (1.4-6.5) Lymphocytes # (Auto) 2.09 K/uL (1.2-3.4) Monocytes # (Auto) 0.72 K/uL (0.11-0.59) Eosinophils # (Auto) 0.10 K/uL (0-0.5) Basophils # (Auto) 0.02 K/uL (0-0.2) RDW Standard Deviation 42.0 fL (36.4-46.3) RDW Coefficient of Variation 13.5 % (11.5-14.5) Immature Granulocyte % (Auto) 0.4 % Immature Granulocyte # (Auto) 0.04 K/uL (0.00-0.02) Prothrombin Time 32.9 SECONDS (9.0-12.0) Prothromb Time International Ratio 3.2 (0.9-1.1) Activated Partial Thromboplast Time 44.0 SECONDS (21.0-31.0) Partial Thromboplastin Ratio 1.7 Anion Gap 5.0 mmol/L (3-11) Est Creatinine Clear Calc Drug Dose 116.6 ml/min Estimated GFR () 103.3 Estimated GFR (Non- 89.1 BUN/Creatinine Ratio 8.3 (10-20) Calcium Level 8.9 mg/dl (8.5-10.1) Troponin I < 0.015 ng/ml (0-0.045) Laboratory results reviewed by me. Medications Administered Medications (Trade) Dose Ordered Sig/Victorina Route Start Time Stop Time Status Last Admin Dose Admin Albuterol/ Ipratropium (Duoneb) 3 ml NOW STAT INH 10/01/17 16:27 10/01/17 16:30 DC 10/01/17 16:50 3 ML Benzonatate (Tessalon Perles Cap) 200 mg NOW ONCE PO 10/01/17 16:30 10/01/17 16:31 DC 10/01/17 16:50 200 MG Azithromycin (Zithromax Tab) 500 mg NOW STAT PO 10/01/17 18:20 10/01/17 18:22 DC 10/01/17 18:47 500 MG Albuterol (Ventolin Hfa Inhaler) 2 puffs NOW ONCE INH 10/01/17 18:30 10/01/17 18:31 DC 10/01/17 18:47 2 PUFFS Benzonatate (Tessalon Perles Cap) 200 mg NOW ONCE PO 10/01/17 18:30 10/01/17 18:31 DC 10/01/17 18:47 200 MG ECG Indication: other (Cough) Rate (beats per minute): 74 Rhythm: normal sinus (with LVH) Findings: no acute ischemic change, no ectopy ED Course 1622: The patient was evaluated in room B6. A complete history and physical exam was performed. 1627: Duoneb 3ml Inh 1630: Benzonatate 200mg PO 1820: Azithromycin 500mg PO 1830: Benzonatate 200mg, Albuterol 2 puffs INH 1840: Reevaluated the patient. Discussed results and discharge instructions. He verbalized understanding and agreement. The patient is ready for discharge. Medical Decision Differential Diagnosis: Pneumonia, bronchitis, musculoskeletal pain, pneumothorax, heart failure, cardiac ischemia, anemia, electrolyte imbalance Patient presents with a persistent cough since being diagnosed with influenza. She was concerned for the possibility of pneumonia. On exam, her lungs were clear. She was not febrile or hypoxic. She did not appear toxic. There is no leukocytosis or concerning anemia. No significant electrolyte abnormality or kidney failure. INR is just over the therapeutic window for someone using Coumadin. EKG shows a sinus rhythm, no acute ischemia. Cardiac enzyme testing times one is not consistent with acute cardiac injury. Chest film does not show pneumonia, CHF or mediastinal widening. The patient received a DuoNeb, Tessalon Perles orally. She was given oral Zithromax and albuterol via MDI. The patient has acute bronchitis, likely left over from her influenza. She also has reproducible anterior chest pain. As the patient has been ill for weeks, as she does have some lung disease, I think antibiotics are indicated. With her allergies, I have chosen a Z-Lex. Patient will also be using albuterol frequently. Tessalon for cough. If worsening, she can return. She will see her doctor this week for a recheck. Medication Reconcilliation Current Medication List: was personally reviewed by me Blood Pressure Screening Patient's blood pressure: Elevated blood pressure Blood pressure disposition: Elevated BP felt to be situational Impression Primary Impression: Acute bronchitis Additional Impressions: Anterior chest wall pain Cough Scribe Attestation The scribe's documentation has been prepared under my direction and personally reviewed by me in its entirety. I confirm that the note above accurately reflects all work, treatment, procedures, and medical decision making performed by me. Departure Information Dispostion Home / Self-Care Prescriptions Benzonatate (TESSALON PERLES) 100 Mg Cap 1-2 CAP PO TID, #20 CAP Prov: Gaetano Dasilva M.D. 10/01/17 Albuterol Hfa (VENTOLIN HFA) 200 Puffs/25929 Mcg Aers 3 PUFFS INH Q6H, #1 INHALER Prov: Gaetano Dasilva M.D. 10/01/17 Azithromycin (ZITHROMAX Z-LEX) 250 Mg Tab 0 PO UD, #1 PKT Prov: Gaetano Dasilva M.D. 10/01/17 Referrals No Doctor, Assigned (PCP) Forms HOME CARE DOCUMENTATION FORM, IMPORTANT VISIT INFORMATION Patient Instructions My [facility] Additional Instructions rest fluids zpac as directed tessalon perles 1-2 tab every 6 hours for cough albuterol 3 puffs every 4 hours return if worsening see della alves this week heat to the chest wall will help otc pain meds as needed keep a close watch on the INR when on the antibiotics Problem Qualifiers
[2017-10-01 16:49] LABS: BASO % 0.2 %; BASO ABS # 0.02 K/uL (0-0.2); HEMATOCRIT 40.8 % (37-47); HEMOGLOBIN 13.5 g/dL (12.0-16.0); IG# 0.04 K/uL (0.00-0.02); LYMPH % 20.5 %; LYMPH ABS # 2.09 K/uL (1.2-3.4); MEAN CELL VOLUME 85.4 fL (80-100); MEAN CORPUSCULAR HEMOGLOBIN 28.2 pg (25-34); MEAN CORPUSCULAR HGB CONC 33.1 g/dl (32-36); MEAN PLATELET VOLUME 9.7 fL (7.4-10.4); MONO % 7.1 %; MONO ABS # 0.72 K/uL (0.11-0.59); NEUT % 70.8 %; NEUT ABS # 7.23 K/uL (1.4-6.5); PLATELET COUNT 225 K/uL (130-400); RED CELL DISTRIBUTION WIDTH CV 13.5 % (11.5-14.5)
[2017-10-01 16:53] LABS: INR 3.2 (0.9-1.1)
[2017-10-01 17:06] LABS: BLOOD UREA NITROGEN 6 mg/dl (7-18); CALCIUM 8.9 mg/dl (8.5-10.1); CARBON DIOXIDE 30 mmol/L (21-32); CREATININE 0.75 mg/dl (0.60-1.20); GLUCOSE 208 mg/dl (70-99); POTASSIUM 3.8 mmol/L (3.5-5.1); SODIUM 135 mmol/L (136-145)
[2017-10-01] MEDS ORDERED: LPT40 PO (17:35)
[2017-10-01] MEDS ORDERED: INSDGIPEN SC (17:35)
[2017-10-01] MEDS ORDERED: PIOG1TAB25 PO (17:35)
[2017-10-01] MEDS ORDERED: INSUINJ7 SC (17:35)
[2017-10-01] MEDS ORDERED: MIRT30TA3 PO (17:35)
[2017-10-01] MEDS ORDERED: GLC500 PO (17:35)
[2017-10-01] MEDS ORDERED: EFFSR75 PO (17:35)
[2017-10-01] MEDS ORDERED: EFFSR150 PO (17:35)
[2017-10-01] MEDS ORDERED: ASPI81TA28 PO (17:39)
[2017-10-01] MEDS ORDERED: LPR50X PO (17:51)
--- NOTE | 2017-10-01 17:59 | DIAGNOSTIC IMAGING REPORT ---
CHEST 2 VIEWS ROUTINE HISTORY: EVALUATE RESPIRATORY DISTRESS.DYSPNEA COMPARISON: Chest 09/21/2017. FINDINGS: There are low lung volumes. The heart remains borderline enlarged. The lungs are clear. No pleural effusions. No pneumothorax. IMPRESSION: No significant change compared to the prior study. No acute process. Electronically signed by: Brandin Montejo M.D. 10/01/2017 5:58 PM Dictated Date/Time: 10/01/2017 5:57 PM
[2017-10-01 18:15] VITALS: BP 155/94; PULSE 76; O2SAT 91
[2017-10-01] MEDS ORDERED: AZITHROMYCIN 250 MG TAB PO STA (18:20)
[2017-10-01] MEDS ORDERED: VNTHFA/IN INH (18:27)
[2017-10-01] MEDS ORDERED: AZITTAB PO (18:27)
[2017-10-01] MEDS ORDERED: BENZ100C18 PO (18:27)
[2017-10-01] MEDS ORDERED: ALBUTEROL HFA 8 GM INHALER INH ONE (18:30)
[2017-10-01] MEDS ORDERED: BSP/10 PO (22:24)
== END 2017-10-01 18:50 | disposition home or self-care (01) ==
LOC: C.EDB 16:14
DX: J20.9 Acute bronchitis, unspecified (principal); R07.89 Other chest pain; R05 Cough; J45.909 Unspecified asthma, uncomplicated; I48.91 Unspecified atrial fibrillation; E11.9 Type 2 diabetes mellitus without complications; I10 Essential (primary) hypertension; K58.9 Irritable bowel syndrome, unspecified; E78.2 Mixed hyperlipidemia; K21.0 Gastro-esophageal reflux disease with esophagitis; Z86.73 Personal history of transient ischemic attack (TIA), and cerebral infarction without residual deficits; Z83.3 Family history of diabetes mellitus; Z80.9 Family history of malignant neoplasm, unspecified; Z79.82 Long term (current) use of aspirin; Z79.4 Long term (current) use of insulin; Z79.01 Long term (current) use of anticoagulants; Z79.899 Other long term (current) drug therapy

== ENCOUNTER 2017-12-30 08:46 | Emergency (ER) | payer OTHER ==
[~2017-12-30] VITALS: Ht 165.1 cm; Wt 137.4 kg
[~2017-12-30 08:46] MED LIST changes: +ASPI81TA28 PO; +BSP/10 PO; +EFF75 PO; +INSDGIPEN SC; +INSP SC; +LPR50X PO; +LPT40 PO; +METF-384 PO; +MIRT30TA3 PO; +ONDA-170 PO; -ONDA8TAB6 PO; -OSEL75CA23 PO; +PIOG1TAB25 PO; +VENL150C56 PO
[2017-12-30 08:57] VITALS: Ht 165.1 cm; Wt 137.4 kg
[2017-12-30] MEDS ORDERED: CEFD300C3 PO (09:23)
--- NOTE | 2017-12-30 09:37 | EMERGENCY ROOM VISIT NOTE ---
History Report prepared by Kalpesh: Agustin León Under the Supervision of: Dr. Max Lieberman M.D. First contact with patient: 09:36 Chief Complaint: FLU LIKE SX Stated Complaint: COUGH, WHEEZING, CONGESTION,SPEARS DBI EAR INFECTION History of Present Illness The patient is a 57 year old female who presents to the Emergency Room with complaints of constant, flu-like illness beginning 5 days ago. The patient notes having ear pain prior to the onset of her current symptoms. She states that she saw her PCP was diagnosed with a double ear infection and prescribed a course of antibiotics and ear drops which she is still currently taking. The patient reports that her ear pain improved, however, she states that she developed other symptoms 5 days ago including a dry cough, wheezing, runny nose , sneezing, and a subjective fever. She notes that she is on currently taking Coumadin due to her history of A-Fib and reports having an ablation performed. The patient denies any history of asthma, history of clotting disorders, history of smoking, vomiting, diarrhea, abdominal pain, headache, body aches, or taking any antipyretic medications today. She denies any chest pain. Source of History: patient Onset: 5 days ago Position: other (global ) Quality: other (flu-like ) Timing: constant Associated Symptoms: + fevers, + cough, No headache, No vomiting, No abdominal pain Note: Associated Symptoms: Ear pain, wheezing, runny nose, sneezing. Denies: History of asthma, history of clotting disorders, or body aches. Review of Systems See HPI for pertinent positives & negatives. A total of 10 systems reviewed and were otherwise negative. Past Medical & Surgical Medical Problems: (1) Asthma, Unspecified (2) Atrial fibrillation (3) Bulging disc (4) Calculus Of Ureter (5) Diab Augustina Wo Compl, Type Ii Or Unspec Type, Not Uncntrld (6) Gastroparesis (7) Hypertension Nos (8) IBS (irritable bowel syndrome) (9) Mixed Hyperlipidemia (10) Paroxysmal atrial fibrillation (11) Reflux Esophagitis (12) TIA Surgical Problems: (1) Appendectomy (2) Carpal tunnel surgery (3) Cholecystectomy (4) H/O cardiac catheterization (5) Hysterectomy (6) S/P ablation of atrial fibrillation Family History Diabetes mellitus FATHER FH: cancer FATHER Social History Smoking Status: Never Smoker Alcohol Use: none Drug Use: none Marital Status: Housing Status: lives with family Occupation Status: disabled Current/Historical Medications Scheduled Aspirin (Aspirin Ec), 81 MG PO QAM Atorvastatin (Lipitor), 40 MG PO QPM Buspirone HCl (Buspirone HCl), 10 MG PO QAM Cefdinir (Cefdinir), 300 MG PO BID Cholecalciferol (Vitamin D), 1,000 INTER.UNIT PO QAM Dexlansoprazole (Dexilant), 60 MG PO BID Doxycycline Hyclate (Vibramycin), 100 MG PO BID Furosemide (Lasix), 20 MG PO QAM Gabapentin (Neurontin), 800 MG PO TID Insulin Glargine (Lantus Solostar), 46 UNITS SC AMPM Insulin Human Regular (Novolin R), 1 DOSE SC QID Losartan Potassium (Cozaar), 25 MG PO QPM Metformin Hcl (Glucophage), 1,000 MG PO BID Metoprolol Tartrate (Metoprolol Tartrate), 50 MG PO BID Mirtazapine (Remeron), 30 MG PO HS Multivitamin (Multivitamin), 1 TAB PO QAM Pioglitazone Hcl (Pioglitazone Hcl), 15 MG PO QAM Potassium Chloride (K-Tabs), 10 MEQ PO BID Ranitidine Hcl (Ranitidine Hcl), 300 MG PO HS Ropinirole Hydrochloride (Requip), 2 MG PO TID Sotalol Hcl (Sotalol Hcl), 160 MG PO BID Sucralfate (Carafate), 1 GM PO QID Venlafaxine Hcl (Effexor), 75 MG PO HS Venlafaxine Hcl (Effexor Extended Rel), 150 MG PO QAM Warfarin Sodium (Coumadin), 15 MG PO 2XWK Warfarin Sodium (Coumadin), 10 MG PO 5XWK Scheduled PRN Albuterol Hfa (Ventolin Hfa), 2-4 PUFFS INH Q6H PRN for Shortness of Breath Fluticasone Prop/Salmeterol (Advair Diskus 250/50 60 Dose), 1 PUFF INH BID PRN for Shortness of Breath Meclizine Hcl (Meclizine Hcl), 25 MG PO TID PRN for Dizziness or Vertigo Ondansetron Hcl (Zofran), 8 MG PO Q8H PRN for Nausea Tramadol/Acetaminophen (Ultracet), 1 TAB PO QID PRN for Pain Allergies Coded Allergies: Penicillins (Verified Allergy, Mild, hives, 12/30/17) Amoxicillin (Unverified Allergy, Unknown, hives, 12/30/17) FROM DISPERMOX Dust (Verified Allergy, Unknown, HAY FEVER, 12/30/17) POLLEN (Verified Allergy, Unknown, HAY FEVER, 12/30/17) Quinolones (Unverified Adverse Reaction, Unknown, GI UPSET, 12/30/17) Sitagliptin (Verified Adverse Reaction, Unknown, abdominal pain, 12/30/17) Physical Exam Vital Signs Date Time Temp Pulse Resp B/P (MAP) Pulse Ox O2 Delivery O2 Flow Rate FiO2 12/30/17 10:46 37.0 86 16 146/90 94 12/30/17 08:57 38.2 92 20 141/90 93 Room Air Physical Exam Constitutional: Vital signs reviewed. Eyes: Pupils are equal round reactive to light. Conjunctiva are noninjected. ENT: Pharynx is clear without erythema or exudate. Mucous membranes are moist. Neck supple without meningeal signs.TMs are clear bilaterally. No signs of otitis externa bilaterally. Respiratory: Breath sounds are equal bilaterally. Bilateral wheezing. Cardiovascular: Regular rate and rhythm. No rubs or gallops. GI: Soft, nondistended and nontender. Bowel sounds are present. Musculoskeletal: No peripheral edema. No lower extremity tenderness. Integumentary: No cyanosis. Neurological: The patient is awake and alert. No focal deficits. Psychiatric: Normal affect. Medical Decision & Procedures ER Provider Diagnostic Interpretation: Radiology results as stated below per my review and the radiologist's interpretation: CHEST 2 VIEWS ROUTINE CLINICAL HISTORY: Cough and wheezing COMPARISON STUDY: 10/01/2017 FINDINGS: The heart is normal in size. There are subtle left lower lobe airspace opacity suspicious for a pneumonia. Films subsequent to treatment are recommended in follow-up. There is no failure. There are no pleural effusions. IMPRESSION: Subtle left lobe airspace opacities suspicious for pneumonia Electronically signed by: Ovi Santoyo M.D. 12/30/2017 10:18 AM Dictated Date/Time: 12/30/2017 10:18 AM Laboratory Results . Medications Administered Medications (Trade) Dose Ordered Sig/Victorina Route Start Time Stop Time Status Last Admin Dose Admin Prednisone (PredniSONE TAB) 60 mg NOW STAT PO 12/30/17 09:49 12/30/17 09:52 DC 12/30/17 09:57 60 MG Albuterol/ Ipratropium (Duoneb) 3 ml NOW STAT INH 12/30/17 09:49 12/30/17 09:52 DC 12/30/17 09:57 3 ML Acetaminophen (Tylenol Tab) 650 mg NOW STAT PO 12/30/17 09:49 12/30/17 09:52 DC 12/30/17 09:57 650 MG Doxycycline Hyclate (Vibramycin Cap) 100 mg ONE ONCE PO 12/30/17 10:45 12/30/17 10:46 DC 12/30/17 10:44 100 MG ED Course 0937: The patient was evaluated in room B03B. A complete history and physical exam was performed. 0949: Ordered Acetaminophen 650mg PO, DuoNeb 3ml INH, and Prednisone 60mg PO. 1023: I reassessed the patient. She states that she is feeling much better. She denies any wheezing on re-exam. I discussed chest x-ray and hospitalization with the patient. She does not wish to stay in the hospital and states she feels well at this time. She states that she has an inhaler and nebulizer at home. I will add doxycycline for better strep-pneumonia coverage. 1045: Ordered Vibramycin Cap 100mg PO 1046: Upon reevaluation, the patient appeared to have improvement of he symptoms. I discussed tonight's findings with her. She verbalized agreement of the treatment plan. She was discharged home. Medical Decision This is a 57-year-old female presents with cough and cold symptoms with shortness of breath. Differential diagnosis includes acute asthma exacerbation , COPD, pneumonia, bronchitis, viral syndrome. I did perform a limited focused review of portions of the patient's old chart on the electronic medical record. She was seen in September an diagnose with Bronchitis for which she was placed on Zithromax. She was also diagnosed with Influenza A in September. I did evaluate the patient as noted above. The patient is presenting with cold symptoms for about 5 days. She does have wheezing diffusely. She states she does not have asthma but she is reported to have a history of asthma throughout her chart. She also states that she has an albuterol inhaler and nebulizer at home. I did treat her with prednisone 60 mg and a DuoNeb. She was also given Tylenol. I did order and personally review the patient's chest x-ray as described above. She does have a left lower lobe infiltrate. I did reassess patient. She is feeling much better. She has no wheezing to auscultation of her lungs. I did discuss her x-ray results with her. She stated she felt fine and did not wish to be admitted to the hospital. She was given a prescription for doxycycline to increased strep pneumoniae coverage. She was discharged in good condition and advised to follow-up with her doctor on Monday. Medication Reconcilliation Current Medication List: was personally reviewed by me Blood Pressure Screening Patient's blood pressure: Elevated blood pressure Blood pressure disposition: Referred to PCP Impression Primary Impression: Left lower lobe pneumonia Additional Impression: Acute asthma exacerbation Scribe Attestation The scribe's documentation has been prepared under my direct and personally reviewed by me in its entirety. I confirm that the note above accurately reflects all work, treatment, procedures, and medical decision making performed by me. Departure Information Dispostion Home / Self-Care Prescriptions Doxycycline Hyclate (VIBRAMYCIN) 100 Mg Cap 100 MG PO BID for 10 Days, #20 CAP Prov: Max Lieberman M.D. 12/30/17 Referrals Chilo Goyal M.D. (PCP) Forms HOME CARE DOCUMENTATION FORM, IMPORTANT VISIT INFORMATION Patient Instructions ED Pneumonia Adult, My [facility] Additional Instructions You have been examined and treated today on an emergency basis only. This is not a substitute for, or an effort to provide, complete comprehensive medical care. It is impossible to recognize and treat all injuries or illnesses in a single emergency department visit. It is therefore important that you follow up closely with your physician within 48 hours. Call as soon as possible for an appointment. Return for worsening symptoms or if you develop chest pain, vomiting, or any other concerning symptoms. Finish your current antibiotic and take doxycycline as well. This medication will increase the effects of your Coumadin/warfarin. Have your doctor recheck your INR and watch for signs of bleeding. Problem Qualifiers Primary Impression: Left lower lobe pneumonia Pneumonia type: due to unspecified organism Qualified Codes: J18.1 - Lobar pneumonia, unspecified organism Additional Impression: Acute asthma exacerbation Asthma severity: mild Asthma persistence: intermittent Qualified Codes: J45.21 - Mild intermittent asthma with (acute) exacerbation
[2017-12-30] MEDS ORDERED: ACETAMINOPHEN 325 MG TAB PO STA (09:49)
[2017-12-30] MEDS ORDERED: ALBUT/IPRATROP 3MG/0.5MG NEB 3 ML VIAL INH STA (09:49)
--- NOTE | 2017-12-30 10:20 | DIAGNOSTIC IMAGING REPORT ---
CHEST 2 VIEWS ROUTINE CLINICAL HISTORY: Cough and wheezing COMPARISON STUDY: 10/01/2017 FINDINGS: The heart is normal in size. There are subtle left lower lobe airspace opacity suspicious for a pneumonia. Films subsequent to treatment are recommended in follow-up. There is no failure. There are no pleural effusions. IMPRESSION: Subtle left lobe airspace opacities suspicious for pneumonia Electronically signed by: Ovi Santoyo M.D. 12/30/2017 10:18 AM Dictated Date/Time: 12/30/2017 10:18 AM
[2017-12-30] MEDS ORDERED: DOXY100C2 PO (10:33)
[2017-12-30] MEDS ORDERED: DOXYCYCLINE HYCLATE 100 MG CAP PO ONE (10:45)
[2017-12-30 10:46] VITALS: BP 146/90; PULSE 86; TEMP 37; O2SAT 94
== END 2017-12-30 10:47 | disposition home or self-care (01) ==
LOC: C.EDB 08:48
DX: J18.9 Pneumonia, unspecified organism (principal); J45.21 Mild intermittent asthma with (acute) exacerbation; I48.91 Unspecified atrial fibrillation; E11.9 Type 2 diabetes mellitus without complications; I10 Essential (primary) hypertension; E78.5 Hyperlipidemia, unspecified; K21.9 Gastro-esophageal reflux disease without esophagitis; Z98.890 Other specified postprocedural states; Z79.82 Long term (current) use of aspirin; Z79.899 Other long term (current) drug therapy; Z79.84 Long term (current) use of oral hypoglycemic drugs; Z79.01 Long term (current) use of anticoagulants; Z88.0 Allergy status to penicillin; Z91.048 Other nonmedicinal substance allergy status; Z88.8 Allergy status to other drugs, medicaments and biological substances